=== PATIENT | female | born 1985 | race Caucasian/White ===

== ENCOUNTER 2019-03-17 20:07 | Emergency (ER) | payer SELFPAY ==
[2019-03-17 20:09] VITALS: BP 137/73; PULSE 97; RESP 14; TEMP 36.5; O2SAT 99; BMI 24.2
--- NOTE | 2019-03-17 20:33 | XRR_ITS ---
PROCEDURE INFORMATION: Exam: XR Left Tibia and Fibula Exam date and time: 03/17/2019 8:51 PM Age: 33 years old Clinical indication: Ankle; Left; Patient HX: Roller blading and fell. Lateral tib fib pain. ; Additional info: Injury TECHNIQUE: Imaging protocol: XR Left tibia and fibula. Views: 2 views. COMPARISON: No relevant prior studies available. FINDINGS: Bones/joints: The bone density is appropriate. No periosteal reaction. No osteomyelitis. No acute fracture or dislocation. No bony destructive changes. Soft tissues: No foreign body. No gas in the soft tissues. XR/XR tibia fibula LT 2V [id number] IMPRESSION: No acute bony abnormality.
[2019-03-17 20:35] VITALS: BP 113/77; PULSE 91; RESP 14; O2SAT 100
--- NOTE | 2019-03-17 20:37 | W.ED.EXTPRO ---
HPI - Extremity Problem General: Chief complaint: Extremity Injury, Lower Stated complaint: FALL 2 WKS AGO-L LEG PAIN Time Seen by Provider: 03/17/19 20:29 Source: patient Mode of arrival: ambulatory Limitations: no limitations History of Present Illness: HPI Narrative: Patient comes in today with complaints of injury to the left lower leg. Patient reports she was rollerskating and tripped on some rocks and caused the injury to her left lower leg. The injury occurred about 2 weeks ago. Patient comes in due to persistent bruising and soreness. Patient is weightbearing and appears well. Review of Systems General: Reports: 10 or more systems reviewed and unremarkable except in HPI and below Musc: Reports: extremity pain and extremity swelling PFSH ED PFSH: Statuses (acute, chronic, etc) shown below reflect problem list status as previously entered and may not be historically accurate Social History Smoking and tobacco status: current every day smoker Female Reproductive History: Date of last menstrual period: 03/05/19 Physical Exam Const: COMMON NORMALS: no apparent distress and oriented x3 GENERAL APPEARANCE: cooperative HENMT: COMMON NORMALS: normocephalic, external ears normal, EAC's normal, TM's normal bilaterally and external nose normal HEAD & SCALP: normal to inspection and normocephalic FACE & SINUS: normal facial exam NOSE: external nose normal GENERAL EAR: hearing not grossly impaired EXTERNAL EAR: Yes external ears normal EXTERNAL AUDITORY CANAL: EAC's normal TYMPANIC MEMBRANE: TM's normal bilaterally MOUTH: oral and palatal mucosa normal THROAT: posterior oropharynx normal Eye: COMMON NORMALS: PERRL and EOMs intact bilaterally PUPIL: Yes PERRL Neck/C-Spine: COMMON NORMALS: full ROM and no lymphadenopathy Lymph: LYMPHATIC: no lymphedema noted Chest: COMMONS NORMALS: inspection of chest normal and palpation of chest normal Resp: COMMON NORMALS: normal respiratory effort and clear to auscultation bilaterally AUSCULTATION: clear to auscultation bilaterally Cardio: COMMON NORMALS: regular rate and regular rhythm RATE: regular rate RHYTHM: regular rhythm GI: COMMON NORMALS: normal to inspection, nondistended, normoactive bowel sounds and non-tender : COMMON NORMALS: Yes no CVA tenderness BLADDER/KIDNEY EXAM: Yes no CVA tenderness Back/Pelvis: COMMON NORMALS: no CVA tenderness and thoracic and lumbar spine normal to inspection Extremity: GENERAL: Yes edema LEFT LOWER EXTREMITY: Yes lower leg (contusion, swelling mild, tenderness) Neuro: COMMON NORMALS: oriented x3, moves all extremities and no focal motor deficits Psych: COMMON NORMALS: mental status grossly normal and cooperative Skin: COMMON NORMALS: no rashes or lesions noted GENERAL SKIN EXAM: no rashes or lesions noted Course Vital Signs: Vital signs: Vital Signs Temperature 97.7 F 03/17/19 20:09 Pulse Rate 91 03/17/19 20:35 Respiratory Rate 14 03/17/19 20:35 Blood Pressure 113/77 03/17/19 20:35 Pulse Oximetry 100 03/17/19 20:35 MDM - Extremity (Nontraumatic) MDM Narrative: Medical decision making narrative: Patient comes in today for evaluation of injury to the left lower extremity that occurred 2 weeks ago. On exam we note some extensive bruising and tenderness to the left lower extremity. Differential diagnosis includes hematoma, contusion, fracture. X-ray noted no fracture or dislocation of the tib-fib. Reviewed exam with patient recommended treatment with warm moist packs and Tylenol and ibuprofen. Patient was recommended to continue activity as tolerated and follow-up with primary care as needed for further evaluation and treatment. Patient stated understanding. Discharge Plan Discharge Patient Disposition: Home, Self-Care Clinical Impression: Contusion of left lower leg Qualifiers: Encounter type: initial encounter Qualified Code(s): S80.12XA - Contusion of left lower leg, initial encounter Condition: Stable Prescriptions: No Action No Known Home Medications RF: 0 Discharge Orders: Discharge Order (Routine); Ordered 03/17/19 Ordered By: Alton Gaines Referrals: Sae Rooney APN [Family Provider] - Discharge Diet: Usual diet Discharge Activity: Increase activity as tolerated Patient Instructions: Contusion in Adults (ED) Activity Restrictions/Additional Instructions: Activity as tolerated Warm moist packs and soaks to the area Drink plenty of water Acetaminophen and ibuprofen for pain Follow-up with primary care as needed Return to ER for high fever increased redness and swelling to lower extremity Discharge Date/Time: 03/17/19 21:15 Coding Level of Care Code 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
== END 2019-03-17 21:15 | disposition home or self-care (01) ==
PROVIDERS: Emergency Provider Nurse Practitioner Family; Family Provider Nurse Practitioner Family
DX: S80.12XA Contusion of left lower leg, initial encounter (principal); W18.09XA Striking against other object with subsequent fall, initial encounter; Y93.51 Activity, roller skating (inline) and skateboarding; F17.210 Nicotine dependence, cigarettes, uncomplicated
CPT/HCPCS: 73590; 99281; 99282

== ENCOUNTER 2019-09-22 17:02 | Emergency (ER) | payer SELFPAY ==
[2019-09-22 17:12] VITALS: BP 122/75; PULSE 81; RESP 18; TEMP 36.8; O2SAT 98; BMI 26.6
[2019-09-22] MEDS: methylPREDNISolone (DEPO) 80 MG/ML INJ 1 mL IM (17:53)
[2019-09-22] MEDS: ketorolac 60 mg/2 mL INJ IM (17:53)
--- NOTE | 2019-09-22 17:53 | W.ED.FEMALGU ---
HPI - Female Genitourinary General: Chief complaint: Urogenital-Female Stated complaint: L SIDE BACK PAIN X 4 DAYS Time Seen by Provider: 09/22/19 17:22 History of Present Illness: HPI Narrative: Patient complains about pain left side does have a history of chronic low back pain. Patient did [place] the last 3 days did a lot of moving and stuff. She has been taking Azo-Standard thinking she might had a kidney infection but she is had no kidney infection symptoms. MD elicited complaint: other (Left lower back pain) Severity: mild Associated symptoms: Deny abdominal pain, headache(s) or nausea Date of Last Menstrual Period: 03/05/19 Review of Systems Const: Denies: fever(s), chills or body aches Eyes: Denies: change in vision or blurry vision ENMT: Denies: throat pain or nasal congestion Card: Denies: chest pain or dyspnea on exertion Resp: Denies: dyspnea, productive cough or non-productive cough GI: Denies: abdominal pain, nausea or vomiting Musc: Reports: back pain (Left flank area); Denies: extremity pain Skin/Breast: Denies: rash Neuro: Denies: headache(s) Psych: Denies: anxiety or depression Gabo/Lymph: Denies: easy bruising PFSH ED PFSH: Social History Smoking and tobacco status: current every day smoker Female Reproductive History: Date of last menstrual period: 03/05/19 Physical Exam Const: COMMON NORMALS: no acute distress, average body habitus and patient oriented x3 HENMT: COMMON NORMALS: normocephalic HEAD & SCALP: normal to inspection and normocephalic FACE & SINUS: normal facial exam Eye: COMMON NORMALS: conjunctivae normal GENERAL EYE: appearance normal, both eyes and all related structures CONJUNCTIVA: Yes conjunctivae normal Neck/C-Spine: COMMON NORMALS: no JVD Chest: COMMONS NORMALS: normal inspection of the chest Resp: COMMON NORMALS: normal respiratory effort and clear to auscultation bilaterally AUSCULTATION: clear to auscultation bilaterally Cardio: COMMON NORMALS: no JVD, regular rate and regular rhythm RATE: regular rate RHYTHM: regular rhythm GI: COMMON NORMALS: Normal to inspection, nondistended, normoactive bowel sounds present Back/Pelvis: LUMBAR SPINE/LOWER BACK: Yes straight leg raise positive left (Bilateral straight leg lift +20 degrees tenderness left flank area.) Straight leg raise positive details left: at 40 degrees Extremity: COMMON NORMALS: normal to inspection and full ROM Neuro: COMMON NORMALS: patient oriented x3 Course Vital Signs: Vital signs: Vital Signs Temperature 98.3 F 09/22/19 17:12 Pulse Rate 81 09/22/19 17:12 Respiratory Rate 18 09/22/19 17:12 Blood Pressure 122/75 09/22/19 17:12 Pulse Oximetry 98 09/22/19 17:12 Discharge Plan Discharge Prescriptions: No Action Azo Urinary Pain Relief 95 mg Tablet 95 mg PO TID PRN (Reason: uti) RF: 0 Coding Level of Care Code 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
[2019-09-22 18:00] VITALS: BP 100/59; PULSE 73; RESP 16; O2SAT 97
[2019-09-22 18:12] LABS: Urine Appearance Clear (CLEAR); Urine Color Orange (Yellow); pH Urine 5 (5-7)
[2019-09-22 18:14] LABS: Blood Urine Trace (Negative)
[2019-09-22 18:15] LABS: Add Urine Microscopic? YES
[2019-09-22 18:16] LABS: Add Urine Culture? No; Bacteria Urine TRACE; Mucus Urine 1+; RBC Urine 0-4 /hpf (0-2); Squamous Epithelial Cell Urine 0-4 (0-5)
[2019-09-22 19:04] VITALS: BP 122/74; PULSE 81; RESP 17; TEMP 36.8; O2SAT 95
== END 2019-09-22 19:04 | disposition home or self-care (01) ==
PROVIDERS: Emergency Provider Nurse Practitioner Family; PCP Nurse Practitioner Family
DX: M54.9 Dorsalgia, unspecified (principal); F17.210 Nicotine dependence, cigarettes, uncomplicated
CPT/HCPCS: 12345; 81001; 96372; 99282; 99283; J1040; J1885

== ENCOUNTER → 2020-06-27 10:05 | Outpatient (BNVA) | payer OTHER, SELFPAY | PROVIDERS: PCP Nurse Practitioner Family; Visit Provider Nurse Practitioner Family | DX: J43.9 Emphysema, unspecified (principal); R76.11 Nonspecific reaction to tuberculin skin test without active tuberculosis | CPT/HCPCS: 71046 ==

== ENCOUNTER 2020-07-21 19:15 | Emergency (ER) | payer SELFPAY ==
[2020-07-21 19:51] VITALS: BP 122/80; PULSE 66; RESP 16; TEMP 36.8; O2SAT 98; BMI 24.2
--- NOTE | 2020-07-21 20:02 | USR_ITS ---
PROCEDURE INFORMATION: Exam: US Left Breast Limited; Trauma Exam date and time: 07/21/2020 8:24 PM Age: 35 years old Clinical indication: Left; Patient HX: Scanned lt breast pain TECHNIQUE: Imaging protocol: Limited ultrasound of Left breast with image documentation, including axilla when performed. Exam focused on the search and evaluation for trauma. Exam is an emergent request and a non-BIRADS study. COMPARISON: No relevant prior studies available. FINDINGS: US breast: Unremarkable soft tissue planes. No focal soft tissue mass, or fluid collection. No soft tissue edema identified. US/US breast LT limited* [id number] IMPRESSION: No evidence of hematoma, mass or fluid collection.
--- NOTE | 2020-07-21 20:03 | W.ED.CHESTPA ---
HPI - Chest Pain General: Chief Complaint: Chest Pain Stated Complaint: left sided chest pain Time Seen by Provider: 07/21/20 19:58 History of Present Illness: HPI narrative: This patient presents to the emergency department 35-year-old female complaining of 3 days worth of left breast pain. Patient states the pain is getting worse hurts to even twist or move. Patient is holding her left breast with right hand patient states that that is making her feel any better. Patient denies any injury. Associated symptoms: Deny abdominal pain, dyspnea, fever(s), nausea, palpitations or vomiting Review of Systems General: Reports: 10 or more systems reviewed and unremarkable except in HPI and below Const: Denies: fever(s), chills, body aches or fatigue Eyes: Denies: change in vision or blurry vision ENMT: Denies: throat pain, hoarseness or mouth pain Card: Denies: chest pain, palpitations, irregular heart rhythm, edema, swelling of feet/ankles or lightheadedness Resp: Denies: dyspnea, productive cough, non-productive cough, wheezing or pain on inspiration GI: Denies: abdominal pain, nausea or vomiting : Denies: flank pain, difficulty voiding, dysuria, urinary frequency, urinary urgency or urinary hesitancy Musc: Denies: neck pain, back pain, extremity pain, extremity swelling, joint pain, joint swelling, joint redness, joint warmth or limited range of motion Skin/Breast: Reports: breast tenderness and breast pain; Denies: rash, pruritus, erythema or skin tenderness Neuro: Denies: headache(s), numbness in extremities or weakness in extremities Psych: Denies: anxiety or depression [facility] ED PFSH: Social History Smoking and tobacco status: current every day smoker cigarettes Packs smoked per day: 1 Years cigarettes smoked: 16 Second hand smoke exposure: Yes Alcohol intake: never Lives independently: Yes Household members: children Marital status: Life Partner service: No Current occupational status: unemployed History of recent travel: No Current gender identity: Female Special tyler needs: No Agree to transfusion: Yes Female Reproductive History: Date of last menstrual period: 07/19/20 Physical Exam Const: COMMON NORMALS: no acute distress, average body habitus, patient oriented x3, no limitations, healthy appearing, alert and well nourished HENMT: COMMON NORMALS: normocephalic, atraumatic, hearing grossly normal bilaterally, external ears normal, EAC's normal, TM's normal bilaterally, Normal external nose present, Normal nasal mucous membranes and turbinates present, moist oral mucous membranes, oropharynx normal, dentition normal and gingiva normal HEAD & SCALP: normocephalic and atraumatic NOSE: Normal external nose present and Normal nasal mucous membranes and turbinates present EXTERNAL EAR: Yes external ears normal EXTERNAL AUDITORY CANAL: EAC's normal TYMPANIC MEMBRANE: TM's normal bilaterally Neck/C-Spine: COMMON NORMALS: full ROM, no lymphadenopathy, supple, no meningeal signs, no JVD, Thyroid normal and No carotid bruits THYROID: Thyroid normal Chest: COMMONS NORMALS: normal inspection of the chest CHEST: Yes tenderness Breast/axilla inspection: Yes abnormal inspection of the breast BREAST/AXILLA PALPATION: Yes abnormal palpation of the breast and Yes breast lump Chest images (female): 1. Breast lump with tenderness Resp: COMMON NORMALS: normal respiratory effort, No retractions, No use of accessory muscles, clear to auscultation bilaterally and percussion normal AUSCULTATION: clear to auscultation bilaterally PERCUSSION: percussion normal Cardio: COMMON NORMALS: no JVD, regular rate, regular rhythm, S1 normal heart sound present, S2 normal heart sound present, No gallops present (Cardio), No clicks present (Cardio), No murmurs present (Cardio), No rub (Cardio) and Peripheral pulses 2+ throughout RATE: regular rate RHYTHM: regular rhythm HEART SOUNDS: S1 normal heart sound present and S2 normal heart sound present PERIPHERAL PULSES: Peripheral pulses 2+ throughout GI: COMMON NORMALS: Normal to inspection, nondistended, normoactive bowel sounds present, Soft to palpation, non-tender, No hepatosplenomegaly present, no masses and no bruits PALPATION: Yes Soft to palpation and Yes No hepatosplenomegaly present : COMMON NORMALS: Yes no CVA tenderness BLADDER/KIDNEY EXAM: Yes no CVA tenderness Back/Pelvis: COMMON NORMALS: no CVA tenderness, thoracic and lumbar spine normal to inspection, no thoracic nor lumbar tenderness, thoraco-lumbar ROM normal and straight leg raise negative bilaterally Extremity: COMMON NORMALS: normal to inspection, full ROM, capillary refill normal, no joint enlargement, no clubbing, cyanosis or edema, no calf tenderness and no pedal edema Neuro: COMMON NORMALS: patient oriented x3 SENSORIUM/ORIENTATION: Yes alert MENINGEAL SIGNS: Yes no meningeal signs Course Vital Signs: Vital signs: Vital Signs Temperature 98.3 F 07/21/20 19:51 Pulse Rate 66 07/21/20 19:51 Respiratory Rate 16 07/21/20 19:51 Blood Pressure 122/80 07/21/20 19:51 Pulse Oximetry 98 07/21/20 19:51 MDM - Chest Pain MDM Narrative: Medical decision making narrative: Negative evaluation in the emergency department any acute findings. However on physical exam does have a lump with tenderness concerning for possible underlying mastitis. Patient will be placed on Bactrim DS. And pain medication patient instructed to follow-up with PCP in 2 to 3 days. Use ice packs as needed. Medical Records: Attestation: I reviewed the patient's medical records. Lab Data: Attestation: I reviewed the patient's lab results. Labs: Lab Results 07/21/20 07/21/20 Range/Units 20:27 20:27 WBC 6.5 (4.0-10.0) 10^3/ uL RBC 4.09 L (4.1-5.3) 10^6/u L Hgb 12.3 (11.5-15.3) g/dL Hct 36.4 L (37.0-47.0) % MCV 89.0 (81-99) fL MCH 30.1 (28.0-34.0) pg MCHC 33.8 (30.0-36.0) g/dL RDW 13.4 (12.1-15.1) % Plt Count 252 (130-400) 10^3/c mm MPV 10.6 H (7.4-10.4) fL Neut % (Auto) 45.8 % Lymph % (Auto) 41.0 % [place] % (Auto) 7.6 % Eos % (Auto) 4.6 % Baso % (Auto) 0.8 % Neut # (Auto) 2.97 (1.8-7.7) 10^3/u L Lymph # (Auto) 2.7 (0.8-4.8) 10^3/u L [place] # (Auto) 0.5 (0.2-0.9) 10^3/u L Eos # (Auto) 0.3 (0.0-0.8) 10^3/u L Baso # (Auto) 0.1 (0.0-0.1) 10^3/u L Nucleated RBC % (a uto) 0 % Nucleated RBCs # 0.0 /100WBC Sodium 139 (136-145) mmol/L Potassium 3.9 (3.5-5.1) mmol/L Chloride 104 (98-107) mmol/L Carbon Dioxide 23 (22-29) mmol/L Anion Gap 15.9 (5-19) BUN 9 (6-20) mg/dL Creatinine 0.6 (0.5-0.9) mg/dL GFR Calculation 113.1 (90-130) mL/min Glucose 72 (65-115) mg/dL Calculated Osmolal ity 285 (285-295) mOsm/k g Calcium 8.6 (8.5-10.5) mg/dL Total Bilirubin 0.2 (0.15-1.2) mg/dL AST 40 H (0-32) U/L ALT 39 H (0-33) U/L Alkaline Phosphata se 45 (35-105) IU/L Total Protein 6.7 (6.6-8.7) g/dL Albumin 4.1 (3.5-5.2) g/dL Globulin 2.6 (1.3-4.6) g/dL Imaging Data^: US: Attestation: I personally reviewed and interpreted this imaging study as follows: Radiologist's impression: Negative for acute findings Discharge Plan Discharge Patient Disposition: Home Clinical Impression: Breast pain Condition: Stable Prescriptions: New diclofenac sodium 75 mg tablet,delayed release (DR/EC) 75 mg PO BID PRN (Reason: pain) Qty: 20 RF: 0 sulfamethoxazole-trimethoprim [Bactrim DS] 800-160 mg tablet 1 tab PO DAILY 14 Days RF: 0 No Action methadone 10 mg tablet 50 mg PO DAILY RF: 0 Discharge Orders: Discharge ED (Routine); Ordered 07/21/20 Ordered By: Escobar Jimenez Referrals: Quevedo,Nevin, MANAGER WIRELESS [Primary Care Provider] - Discharge Diet: Advance as tolerated Discharge Activity: Resume usual activity Patient Instructions: Opioid Safety Activity Restrictions/Additional Instructions: Take medications as instructed. Ice packs as needed. Monitor area closely. Follow-up with PCP in 2 to 3 days Coding Level of Care Code ED Chief Deputy Coroner for [facility] Fwd Exam Comprehensive
[2020-07-21 20:35] LABS: Basophils # 0.1 10^3/uL (0.0-0.1); Basophils % 0.8 %; Eosinophils # 0.3 10^3/uL (0.0-0.8); Eosinophils % 4.6 %; Hematocrit 36.4 % (37.0-47.0); Hemoglobin 12.3 g/dL (11.5-15.3); Lymphocytes # 2.7 10^3/uL (0.8-4.8); Mean Corpuscular HGB Conc 33.8 g/dL (30.0-36.0); Mean Corpuscular Hemoglobin 30.1 pg (28.0-34.0); Mean Platelet Volume 10.6 fL (7.4-10.4); Monocytes # 0.5 10^3/uL (0.2-0.9); Monocytes % 7.6 %; Neutrophils # 2.97 10^3/uL (1.8-7.7); Neutrophils % 45.8 %; Nucleated Red Blood Cells % 0 %; Platelet Count 252 10^3/cmm (130-400); Red Blood Count 4.09 10^6/uL (4.1-5.3); Red Cell Distribution Width 13.4 % (12.1-15.1); White Blood Count 6.5 10^3/uL (4.0-10.0)
[2020-07-21] MEDS: sodium chloride 0.9% 500 ML IV (21:03)
[2020-07-21] MEDS: ondansetron 2 mg/ML SDV 2 mL 4 MG IVP (21:03)
[2020-07-21] MEDS: ketorolac 30 mg/mL INJ 15 MG IVP (21:05)
[2020-07-21 21:06] LABS: Alanine Aminotransferase 39 U/L (0-33); Albumin Level 4.1 g/dL (3.5-5.2); Alkaline Phosphatase 45 IU/L (35-105); Anion Gap 15.9 (5-19); Blood Urea Nitrogen 9 mg/dL (6-20); Calcium 8.6 mg/dL (8.5-10.5); Carbon Dioxide 23 mmol/L (22-29); Chloride 104 mmol/L (98-107); Creatinine Clr Calc Pharmacy 128.4984; Globulin 2.6 g/dL (1.3-4.6); Glomerular Filtration Rate 113.1 mL/min (90-130); Glucose 72 mg/dL (65-115); Osmolality Calculated 285 mOsm/kg (285-295); Potassium 3.9 mmol/L (3.5-5.1); Sodium 139 mmol/L (136-145); Total Bilirubin 0.2 mg/dL (0.15-1.2); Total Protein 6.7 g/dL (6.6-8.7)
[2020-07-21 21:07] LABS: Aspartate Amino Transferase 40 U/L (0-32)
[2020-07-21 21:34] VITALS: BP 127/60; PULSE 86; RESP 16; TEMP 36.8; O2SAT 98
== END 2020-07-21 21:35 | disposition home or self-care (01) ==
PROVIDERS: Emergency Provider Emergency Medicine; PCP Nurse Practitioner Family
DX: N64.4 Mastodynia (principal); F17.210 Nicotine dependence, cigarettes, uncomplicated; Z79.891 Long term (current) use of opiate analgesic
CPT/HCPCS: 76642; 80053; 85025; 96361; 96374; 96375; 99283; J1885; J2405; J7040

== ENCOUNTER → 2020-11-19 15:29 | Outpatient (BNVA) | payer SELFPAY | PROVIDERS: PCP Nurse Practitioner Family; Visit Provider Nurse Practitioner Family | DX: L65.9 Nonscarring hair loss, unspecified (principal); Z13.29 Encounter for screening for other suspected endocrine disorder; M25.50 Pain in unspecified joint; M79.10 Myalgia, unspecified site; R63.5 Abnormal weight gain; Z82.69 Family history of other diseases of the musculoskeletal system and connective tissue; M65.312 Trigger thumb, left thumb | CPT/HCPCS: 80053; 82607; 83550; 84443; 85025; 85651; 86140; 86160; 86162; 86235; 86255; 86376 ==

== ENCOUNTER → 2020-12-19 09:49 | Outpatient (BNVA) | payer OTHER, SELFPAY | PROVIDERS: PCP Nurse Practitioner Family; Visit Provider Internal Medicine | DX: R76.8 Other specified abnormal immunological findings in serum (principal); M25.50 Pain in unspecified joint; D64.9 Anemia, unspecified; L65.9 Nonscarring hair loss, unspecified; Z11.59 Encounter for screening for other viral diseases; G47.00 Insomnia, unspecified; R74.01 Elevation of levels of liver transaminase levels; R76.11 Nonspecific reaction to tuberculin skin test without active tuberculosis; Z82.69 Family history of other diseases of the musculoskeletal system and connective tissue; F17.210 Nicotine dependence, cigarettes, uncomplicated | CPT/HCPCS: 99204 ==

== ENCOUNTER 2020-12-19 10:46 | Outpatient (CLI) | payer OTHER, SELFPAY ==
--- NOTE | 2020-12-19 10:55 | XR_ITS ---
WS: [id number] Left foot, 2 views, 12/19/2020 Clinical Data: M25.50 - Pain in unspecified joint Comparison: None. Findings: No fractures or dislocations are seen. No bone destruction or erosion is noted. The joint spaces and soft tissues are normal. No periarticular demineralization or calcifications are seen. XR/XR foot LT 2V [id number] Impression: Negative left foot.
--- NOTE | 2020-12-19 10:55 | XR_ITS ---
WS: [id number] Right hand, 2 views, 12/19/2020 Clinical Data: R74.01 - Elevation of levels of liver transaminase levels Comparison: None. Findings: No fractures or dislocations are seen. The soft tissues are unremarkable. The joint space s are normal An artifact overlies the distal phalanx of the right fourth finger. No periarticular demineralization or calcifications are seen. XR/XR hand RT 2V [id number] Impression: Negative right hand.
--- NOTE | 2020-12-19 10:55 | XR_ITS ---
WS: [id number] Left hand, 2 views, 12/19/2020 Clinical Data: R74.01 - Elevation of levels of liver transaminase levels Comparison: None. Findings: No fractures or dislocations are seen. The soft tissues are unremarkable. The joint spaces are normal A decorative fingernail overlies the distal phalanx of the left fourth finger. No periarticular demin eralization or calcifications are seen. XR/XR hand LT 2V [id number] Impression: Negative left hand.
--- NOTE | 2020-12-19 10:55 | XR_ITS ---
WS: [id number] Right foot, 2 views, 12/19/2020 Clinical Data: M25.50 - Pain in unspecified joint Comparison: None. Findings: No fractures or dislocations are seen. No bone destruction or erosion is noted. The joint spaces and soft tissues are normal. No periarticular demineralization or calcifications are seen. XR/XR foot RT 2V [id number] Impression: Negative right foot.
== END 2020-12-19 10:47 | disposition home or self-care (01) ==
LOC: RAD 10:53
PROVIDERS: PCP Nurse Practitioner Family; Visit Provider Internal Medicine
DX: G47.00 Insomnia, unspecified (principal); L65.9 Nonscarring hair loss, unspecified; M25.50 Pain in unspecified joint; M65.312 Trigger thumb, left thumb; M79.10 Myalgia, unspecified site; R53.83 Other fatigue; R74.01 Elevation of levels of liver transaminase levels; Z82.69 Family history of other diseases of the musculoskeletal system and connective tissue
CPT/HCPCS: 73120; 73620

== ENCOUNTER → 2020-12-22 09:23 | Outpatient (BNVA) | payer OTHER, SELFPAY | PROVIDERS: PCP Nurse Practitioner Family; Visit Provider Internal Medicine | DX: G47.00 Insomnia, unspecified (principal); L65.9 Nonscarring hair loss, unspecified; M25.50 Pain in unspecified joint; Z11.59 Encounter for screening for other viral diseases; Z11.1 Encounter for screening for respiratory tuberculosis; M65.312 Trigger thumb, left thumb; M79.10 Myalgia, unspecified site; R53.83 Other fatigue; R74.01 Elevation of levels of liver transaminase levels; Z82.69 Family history of other diseases of the musculoskeletal system and connective tissue | CPT/HCPCS: 80053; 80061; 81001; 82306; 82310; 82550; 82607; 82746; 82784; 83516; 83540; 83550; 83970; 84100; 85025; 85651; 86140; 86160; 86480; 86704; 86803; 87340 ==

== ENCOUNTER → 2021-01-02 08:34 | Outpatient (BNVA) | payer OTHER, SELFPAY | PROVIDERS: PCP Nurse Practitioner Family; Visit Provider Internal Medicine | DX: R76.8 Other specified abnormal immunological findings in serum (principal); L65.9 Nonscarring hair loss, unspecified; R74.01 Elevation of levels of liver transaminase levels; B18.2 Chronic viral hepatitis C; R53.83 Other fatigue; M25.50 Pain in unspecified joint; E87.6 Hypokalemia; R79.0 Abnormal level of blood mineral; E55.9 Vitamin D deficiency, unspecified; F17.210 Nicotine dependence, cigarettes, uncomplicated | CPT/HCPCS: 99214 ==

== ENCOUNTER → 2021-01-21 15:37 | Outpatient (BNVA) | payer OTHER, SELFPAY | PROVIDERS: PCP Nurse Practitioner Family; Referring Provider Nurse Practitioner Family; Visit Provider Specialist | DX: M65.312 Trigger thumb, left thumb (principal) | CPT/HCPCS: 73130 ==

== ENCOUNTER → 2021-02-23 11:25 | Outpatient (BNVA) | payer OTHER, SELFPAY | PROVIDERS: PCP Nurse Practitioner Family; Visit Provider Specialist | DX: Z01.812 Encounter for preprocedural laboratory examination (principal); Z20.822 Contact with and (suspected) exposure to COVID-19 | CPT/HCPCS: 87635 ==

== ENCOUNTER → 2021-11-04 10:47 | Outpatient (BNVA) | payer OTHER, SELFPAY | PROVIDERS: PCP Nurse Practitioner Family; Visit Provider Nurse Practitioner Family | DX: N93.9 Abnormal uterine and vaginal bleeding, unspecified (principal); Z86.19 Personal history of other infectious and parasitic diseases; Z12.4 Encounter for screening for malignant neoplasm of cervix; Z13.6 Encounter for screening for cardiovascular disorders; R79.89 Other specified abnormal findings of blood chemistry; B37.3 Candidiasis of vulva and vagina | CPT/HCPCS: 80053; 80061; 82306; 82607; 84146; 84439; 84443; 85025; 86705; 86706; 86709; 86803; 87340; 87522; 87624; 87902 ==

== ENCOUNTER 2021-12-08 08:41 | Outpatient (CLI) | payer OTHER, SELFPAY ==
--- NOTE | 2021-12-08 08:30 | US_ITS ---
WS: [id number] Complete ABDOMINAL ULTRASOUND HISTORY: Z86.19 - Personal history of other infectious and parasites. COMPARISON: Renal ultrasound 08/07/2005 Liver: 14.7 cm in length. Liver is normal size and echogenicity with no mass or intrahepatic dilatati on. Portal Vein: Normal hepatopetal flow with monophasic waveform. Gallbladder: Normally distended with no gallstones, wall thickening or pericholecystic fluid. Gallbladder wall thickness: 0.3 cm. Pancreas: Poorly visualized due to body habitus. CBD: 0.3 cm. Right kidney: 10.8 cm x 5.5 cm x 4.0 cm. No mass, cortical thickening or hydronephrosis. Left kidney: 10.7 cm x 4.5 cm x 4.0 cm. No mass, cortical thickening or hydronephrosis. Spleen: Normal size and echogenicity. Abdominal aorta and IVC are within normal limits. No ascites. US/US abdomen complete* [id number] IMPRESSION: 1. Normal gallbladder. 2. Poorly visualized pancreas due to body habitus. 3. No bile duct dilatation. 4. Normal liver and kidneys.
== END 2021-12-08 08:42 | disposition home or self-care (01) ==
LOC: RAD 08:42
PROVIDERS: PCP Nurse Practitioner Family; Visit Provider Nurse Practitioner Family
DX: Z86.19 Personal history of other infectious and parasitic diseases (principal)
CPT/HCPCS: 76700

== ENCOUNTER → 2022-03-04 10:05 | Outpatient (BNVA) | payer OTHER, SELFPAY | PROVIDERS: PCP Nurse Practitioner Family; Visit Provider Student in an Organized Health Care Education/Training Program | DX: Z11.4 Encounter for screening for human immunodeficiency virus [HIV] (principal); B19.20 Unspecified viral hepatitis C without hepatic coma | CPT/HCPCS: 36415; 86705; 86706; 86709; 86803; 87340; 87522; 87806 ==

== ENCOUNTER → 2022-05-05 09:09 | Outpatient (BNVA) | payer OTHER, SELFPAY | PROVIDERS: PCP Nurse Practitioner Family; Visit Provider Nurse Practitioner Family | DX: F41.9 Anxiety disorder, unspecified (principal); F32.A Depression, unspecified; E55.9 Vitamin D deficiency, unspecified | CPT/HCPCS: 80053; 82306; 82607; 83735; 84443; 85025 ==

== ENCOUNTER 2022-07-14 11:48 | Outpatient (CLI) | payer OTHER, SELFPAY ==
[2022-07-14 12:38] LABS: Alanine Aminotransferase 9 U/L (0-33); Albumin Level 3.7 g/dL (3.5-5.2); Alkaline Phosphatase 64 U/L (35-105); Blood Urea Nitrogen 6 mg/dL (6-20); Calcium 8.6 mg/dL (8.5-10.5); Carbon Dioxide 23 mmol/L (22-29); Chloride 109 mmol/L (98-107); Globulin 3.3 g/dL (1.3-4.6); Glomerular Filtration Rate 80.3 mL/min (90-130); Glucose 103 mg/dL (65-115); Osmolality Calculated 290 mOsm/kg (285-295); Sodium 141 mmol/L (136-145); Total Bilirubin 0.2 mg/dL (0.15-1.2)
[2022-07-14 12:45] LABS: Anion Gap 12.7 (5-19); Aspartate Amino Transferase 17 U/L (0-32); Potassium 3.7 mmol/L (3.5-5.1)
[2022-07-15 22:49] LABS: HEP C RNA Viral Load Quant <1.18 NOT DETECTED Log IU/mL (NOT DETECTED); HEP C RNA Viral Load Quant <15 NOT DETECTED IU/mL (NOT DETECTED)
== END 2022-07-14 11:49 | disposition home or self-care (01) ==
LOC: LAB 11:53
PROVIDERS: PCP Nurse Practitioner Family; Visit Provider Student in an Organized Health Care Education/Training Program
DX: B19.20 Unspecified viral hepatitis C without hepatic coma (principal); Z86.19 Personal history of other infectious and parasitic diseases
CPT/HCPCS: 36415; 80053; 87522

== ENCOUNTER → 2022-07-15 08:36 | Outpatient (BNVA) | payer OTHER, SELFPAY | PROVIDERS: PCP Nurse Practitioner Family; Visit Provider Obstetrics & Gynecology | DX: N93.9 Abnormal uterine and vaginal bleeding, unspecified (principal); N83.201 Unspecified ovarian cyst, right side | CPT/HCPCS: 76830 ==

== ENCOUNTER → 2023-03-16 17:09 | Outpatient (BNVA) | payer MEDICAID, SELFPAY | PROVIDERS: PCP Nurse Practitioner Family; Visit Provider Nurse Practitioner Family | DX: N39.0 Urinary tract infection, site not specified (principal) | CPT/HCPCS: 81003; 87077; 87086; 87184 ==

== ENCOUNTER → 2023-06-27 15:35 | Outpatient (BNVA) | payer MEDICAID, SELFPAY | PROVIDERS: PCP Nurse Practitioner Family; Visit Provider Nurse Practitioner Family | DX: F41.9 Anxiety disorder, unspecified (principal); F32.A Depression, unspecified; N39.0 Urinary tract infection, site not specified; R30.0 Dysuria; R53.83 Other fatigue; Z86.19 Personal history of other infectious and parasitic diseases; E53.8 Deficiency of other specified B group vitamins | CPT/HCPCS: 80053; 80061; 81000; 81003; 83036; 84443; 87077; 87086; 87184 ==

== ENCOUNTER 2024-11-04 22:41 | Emergency (ER) | payer MEDICAID, SELFPAY ==
[2024-11-04 22:42] VITALS: BP 167/91; PULSE 108; RESP 18; TEMP 36.4; O2SAT 100; BMI 25.8
--- OUTSIDE RECORDS SUMMARY | 2024-11-04 22:49 | XMS_ITS | Encounter Summary ---
Author Organization [facility] Address [address] [place] [address] Care Team Providers Care Line Manager Name Role Phone Unavailable Primary Care Provider Unavailabl e Encounter Details Date Type Department Care Team (Late st Contact Info) Description 10/30/2024 External Device Data [facility] ABSTRACTION Provider, Abstract NO ADDRESS ON FILE Social History Tobacco Use Types Packs/Day Years Used Date Smoking Tobacco: Former Cigarettes Q uit: 10/15/2014 Smokeless Tobacco: Never Alcohol Use Standard Drinks/Week Comments No 0 (1 standard drink = 0.6 oz pur e alcohol) Feeling Safe Answer Date Recorded Are you in a relationship wi th someone who hurts you emotionally and/or physically? 

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
--- NOTE | 2024-11-04 22:55 | CTR_ITS ---
PROCEDURE INFORMATION: Exam: CT Head Without Contrast Exam date and time: 11/04/2024 11:09 PM Age: 39 years old Clinical indication: Altered mental status/memory loss; Confusion or disorientation; Patient C/O confusion and memory loss over last four days. TECHNIQUE: Imaging protocol: Computed tomography of the head without contrast. Radiation optimization: All CT scans at this facility use at least one of these dose optimization techniques: automated exposure control; mA and/or kV adjustment per patient size (includes targeted exams where dose is matched to clinical indication); or iterative reconstruction. COMPARISON: No relevant prior studies available. RADIATION DOSE METRICS: Total DLP (mGy-cm): 993.2 FINDINGS: Brain: Normal. No hemorrhage. Unremarkable white matter. No mass effect. Cerebral ventricles: No ventriculomegaly. Paranasal sinuses: Right maxillary and ethmoid sinus opacification, could represent infection. Mastoid air cells: Visualized mastoid air cells are well aerated. Bones: Unremarkable. No acute fracture. Soft tissues: Unremarkable. CT/CT head wo con* [id number] IMPRESSION: Right maxillary and ethmoid sinus opacification, could represent infection. No definite acute intracranial abnormality.
--- NOTE | 2024-11-04 23:00 | W.ED.AMS ---
HPI - Altered Mental Status General: Chief Complaint: Altered Mental Status Stated Complaint: Slurred Speaking\Confusion Time Seen by Provider: 11/04/24 22:48 History of Present Illness: 39-year-old female with Hx of hepatitis C with cirrhosis presents with 3?4 days of confusion, difficulty speaking, and short-term memory loss. Reports feeling very cold frequently and lethargic. Denies fever and abdominal pain. Notes midline spinal/back pain recently. No report of right-sided weakness or falls. Caregiver states patient has been losing items over the past three days. 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 Speech difficulty described as slurring and trouble concentrating. No other systemic complaints elicited. Related Data Home Medications ?Medication ?Instructions ?Recorded ?Confirmed methadone 10 mg tablet 85 mg PO DAILY 06/27/20 10/24/24 Previous Rx's ?Medication ?Instructions ?Recorded sofosbuvir 400 mg-velpatasvir 100 1 tab PO DAILY 12 weeks #90 tabs 05/05/22 mg tablet (Epclusa) loratadine 10 mg tablet (Claritin) 10 mg PO DAILY 90 days #90 tabs 07/14/22 fluconazole 150 mg tablet 150 mg PO Q3D 2 doses #2 tabs 03/16/23 ondansetron HCl 4 mg tablet 4 mg PO Q6H PRN nausea and 03/16/23 vomiting #60 tabs escitalopram oxalate 10 mg tablet 10 mg PO DAILY #30 tabs 06/27/23 (Lexapro) fluconazole 150 mg tablet 150 mg PO Q3D 2 doses #2 tabs 06/27/23 nitrofurantoin 100 mg PO Q12H 7 days #14 caps 07/01/23 monohydrate/macrocrystals 100 mg capsule (Macrobid) nitrofurantoin macrocrystal 100 mg 100 mg PO BID 5 days #10 caps 11/05/24 capsule Allergies Allergy/AdvReac Type Severity Reaction Status Date / Time No Known Allergies Allergy Verified 11/04/24 22:44 [facility] PFS: Medical History (Updated 11/05/24 @ 01:12 by Nicola Bach MD) Vitamin D deficiency B12 deficiency Anxiety and depression Hep C w/o coma, chronic Family History Other Diabetes Fibromyalgia Lupus Rheumatoid arthritis Social History Smoking and tobacco/nicotine status: current every day tobacco/nicotine user cigarettes Packs smoked per day: 0.5 Years cigarettes smoked: 16 Quit status (tobacco/nicotine): has tried quititng Second hand smoke exposure: Yes Alcohol intake: never Substance/Drug Use: former Date of last use: clean for years Female Reproductive History: Date of last menstrual period: 09/28/24 Physical Exam Const: COMMON NORMALS: patient oriented x3 and alert HENMT: COMMON NORMALS: normocephalic and atraumatic HEAD & SCALP: normocephalic and atraumatic Eye: COMMON NORMALS: Equal, round and reactive pupils present, EOMs intact bilaterally and no scleral icterus PUPIL: Yes Equal, round and reactive pupils present Resp: COMMON NORMALS: normal respiratory effort and No retractions Cardio: COMMON NORMALS: regular rate, regular rhythm and No murmurs present (Cardio) RATE: regular rate RHYTHM: regular rhythm GI: COMMON NORMALS: Normal to inspection, nondistended, normoactive bowel sounds present, Soft to palpation and non-tender PALPATION: Yes Soft to palpation Neuro: COMMON NORMALS: patient oriented x3 SENSORIUM/ORIENTATION: Yes alert Psych: OTHER: Tearful, anxious Skin: COMMON NORMALS: no rashes or lesions noted GENERAL SKIN EXAM: no rashes or lesions noted Course Vital Signs: Vital signs: Vital Signs Temperature 97.6 F 11/04/24 22:42 Pulse Rate 67 11/05/24 01:17 Respiratory Rate 12 11/05/24 01:17 Blood Pressure 122/72 11/05/24 01:17 Pulse Oximetry 64 L 11/05/24 01:17 Oxygen Delivery Me thod Room Air 11/04/24 23:25 MDM - Altered Mental Status Medical Decision Making 39-year-old F with hep C/cirrhosis presents with 3?4 days of confusion, word-finding/slurred speech, lethargy, cold intolerance, and recent midline back pain. Denies fever and abdominal pain. Safety Instructor notes memory loss and misplacing items. Vital signs notable for tachycardia. PE: tearful but conversant with clear speech during exam, no reported focal right-sided weakness. Stroke considered low likelihood per clinician given absence of associated focal deficits (no right arm/leg weakness). Metabolic/toxic etiologies discussed by provider as potential causes of confusion and slurred speech, including liver or renal dysfunction. Head imaging planned to evaluate brain pathology. Labs to assess hepatic function, renal function, and other contributors to confusion planned. Further evaluation pending results. In summary, patient is a generally well-appearing 39-year-old female seen for confusion. Her speech is clear. CT head shows nothing acute. Urinalysis shows possible infection for which she was given ceftriaxone here and a prescription for nitrofurantoin. Remainder of workup is noncontributory. She will be discharged in stable and improved condition with follow-up to primary care. Lab Data 11/04/24 23:02 11/04/24 23:[address] 11/04/24 22:55 IMPRESSION: Right maxillary and ethmoid sinus opacification, could represent infection. No definite acute intracranial abnormality. Laboratory Results WBC 5.93 10^3/uL (3.29-11.43) 11/04/24 23: RBC 2.98 10^6/uL (3.85-5.65) L 11/04/24 23: Hgb 9.70 g/dL (11.27-16.99) L 11/04/24 23:02 Hct 29.4 % (36-47) L 11/04/24 23: MCV 98.7 fl (85-98) H 11/04/24 23:02 MCH 32.6 pg (27-33) 11/04/24 23: MCHC 33.0 g/dL (30-55) 11/04/24 23: RDW 14.6 % (12.1-15.1) 11/04/24 23: Plt Count 278 10^3/cmm (157-399) 11/04/24 23:02 MPV 9.4 fL (7.4-10.4) 11/04/24 23: Neut % (Auto) 45.8 % 11/04/24 23: Lymph % (Auto) 45.0 % 11/04/24 23:02 Logan % (Auto) 4.0 % 11/04/24 23: Eos % (Auto) 4.4 % 11/04/24 23: Baso % (Auto) 0.5 % 11/04/24 23: Neut # (Auto) 2.71 10^3/uL (1.8-7.7) 11/04/24 23:02 Lymph # (Auto) 2.7 10^3/uL (0.8-4.8) 11/04/24 23:02 Logan # (Auto) 0.2 10^3/uL (0.2-0.9) 11/04/24 23:02 Eos # (Auto) 0.3 10^3/uL (0.0-0.8) 11/04/24 23:02 Baso # (Auto) 0.0 10^3/uL (0.0-0.1) 11/04/24 23:02 Nucleated RBC % (auto) 0 % 11/04/24 23:02 Nucleated RBCs # 0.0 /100WBC 11/04/24 23:02 PT 13.30 SECONDS (12.1-14.9) 11/04/24 23:02 INR 0.95 (0.8-1.2) 11/04/24 23:02 APTT 30.2 SECONDS (23.9-36.7) 11/04/24 23:02 Sodium 145 mmol/L (136-145) 11/04/24 23:02 Potassium 3.7 mmol/L (3.5-5.1) 11/04/24 23:02 Chloride 108 mmol/L (98-107) H 11/04/24 23:02 Carbon Dioxide 26 mmol/L (22-29) 11/04/24 23:02 Anion Gap 14.7 (5-19) 11/04/24 23:02 BUN 16 mg/dL (6-20) 11/04/24 23:02 Creatinine 1.0 mg/dL (0.5-0.9) H 11/04/24 23:02 GFR Calculation 61.4 mL/min (90-130) L 11/04/24 23:02 Glucose 127 mg/dL (65-115) H 11/04/24 23:02 POC Glucose 126 mg/dL (70-110) H 11/04/24 23:04 Calculated Osmolality 303 mOsm/kg (285-295) H 11/04/24 23:02 Calcium 8.8 mg/dL (8.5-10.5) 11/04/24 23:02 Total Bilirubin 0.2 mg/dL (0.15-1.2) 11/04/24 23:02 AST 18 U/L (0-32) 11/04/24 23:02 ALT 7 U/L (0-33) 11/04/24 23:02 Alkaline Phosphatase 65 U/L (35-105) 11/04/24 23:02 Ammonia 16 umol/L (11-51) 11/04/24 23:02 Total Protein 7.6 g/dL (6.6-8.7) 11/04/24 23: Albumin 4.0 g/dL (3.5-5.2) 11/04/24 23: Globulin 3.6 g/dL (1.3-4.6) 11/04/24 23: TSH 4.92 uIU/mL (0.27-4.20) H 11/04/24 23:02 Urine Color Yellow (Yellow) 11/04/24 23:30 Urine Appearance Clear (CLEAR) 11/04/24 23: Urine pH 6.0 (5-7) 11/04/24 23: Ur Specific Odin 1.020 (1.005-1.030) 11/04/24 23: Urine Protein Negative (Negative) 11/04/24 23: Urine Glucose (UA) Negative (Normal) 11/04/24 23: Urine Ketones Negative (Negative) 11/04/24 23: Urine Blood 1+ (Negative) A 11/04/24 23: Urine Nitrate Positive (Negative) A 11/04/24 23: Urine Bilirubin Negative (Negative) 11/04/24: Urine Urobilinogen 1.0 mg/dL (Negative) 11/04/24 23:30 Ur Leukocyte Esterase Trace (Negative) A 11/04/24 23:30 Urine RBC 3-5 /hpf (0-2) 11/04/24 23: Urine WBC 21-50 /hpf (0-5) H 11/04/24 23:30 Ur Squamous Epith Cells 0-5 /hpf (0-5) 11/04/24 23:30 Amorphous Sediment Not Reportable 11/04/24 23:30 Urine Bacteria 4+ /hpf (NONE) H 11/04/24 23: Hyaline Casts 0.40 /lpf 11/04/24 23:30 Ethyl Alcohol < 10 mg/dL (0-10) 11/04/24 23:02 All radiology interpretation(s) finalized by discharge EKG Data EKG 1: Interpretation: EKG at 2259 interpreted by me: Sinus rhythm, rate of 90, no ST segment elevation or depression, no T wave inversions, intervals within normal limits. QTc = 452 Discharge Plan Discharge Patient Disposition: Home Clinical Impression: UTI (urinary tract infection), Acute confusion Condition: Stable Prescriptions: New nitrofurantoin macrocrystal 100 mg capsule 100 mg PO BID 5 Days Qty: 10 0RF Rx Instructions: must administer with a meal/food No Action methadone 10 mg tablet 85 mg PO DAILY sofosbuvir-velpatasvir [Epclusa] 400-100 mg tablet 1 tab PO DAILY 84 Days Qty: 90 0RF loratadine [Claritin] 10 mg tablet 10 mg PO DAILY 90 Days Qty: 90 1RF ondansetron HCl 4 mg tablet 4 mg PO Q6H PRN (Reason: nausea and vomiting) Qty: 60 0RF fluconazole 150 mg tablet 150 mg PO Q3D Qty: 2 0RF Rx Instructions: may repeat second dose 72 hrs after first dose if symptoms persist escitalopram oxalate [Lexapro] 10 mg tablet 10 mg PO DAILY Qty: 30 2RF fluconazole 150 mg tablet 150 mg PO Q3D Qty: 2 0RF Rx Instructions: may repeat second dose 72 hrs after first dose if symptoms persist nitrofurantoin monohyd/m-cryst [Macrobid] 100 mg capsule 100 mg PO Q12H 7 Days Qty: 14 0RF Rx Instructions: must administer with a meal/food Discharge Orders: Discharge ED (Routine); Ordered 11/05/24 Ordered By: Nicola Bach Referrals: Jojo Choi FNP [Primary Care Provider, Family Practice] Discharge Diet: Usual diet Discharge Activity: Resume usual activity Patient Instructions: Urinary Tract Infection in Women (ED), Opioid Safety, Pain Management, Patient Portal & Valdo Instructions Print Language: Malay Coding Level of Care Code ED Automation And Control Engineer for Anderson Sorto
[2024-11-04 23:09] LABS: Hematocrit 29.4 % (36-47); Hemoglobin 9.70 g/dL (11.27-16.99); Mean Corpuscular HGB Conc 33.0 g/dL (30-55); Mean Corpuscular Hemoglobin 32.6 pg (27-33); Mean Corpuscular Volume 98.7 fl (85-98); Nucleated Red Blood Cells % 0 %; Platelet Count 278 10^3/cmm (157-399); Red Blood Count 2.98 10^6/uL (3.85-5.65); White Blood Count 5.93 10^3/uL (3.29-11.43)
[2024-11-04 23:20] LABS: INR 0.95 (0.8-1.2); Prothrombin Time 13.30 SECONDS (12.1-14.9)
[2024-11-04 23:21] LABS: Partial Thromboplastin Time 30.2 SECONDS (23.9-36.7)
[2024-11-04 23:25] VITALS: BP 103/72; PULSE 63; RESP 12; O2SAT 100
[2024-11-04 23:30] LABS: Ammonia 16 umol/L (11-51)
[2024-11-04 23:39] LABS: Alanine Aminotransferase 7 U/L (0-33); Albumin Level 4.0 g/dL (3.5-5.2); Alkaline Phosphatase 65 U/L (35-105); Aspartate Amino Transferase 18 U/L (0-32); Blood Urea Nitrogen 16 mg/dL (6-20); Calcium 8.8 mg/dL (8.5-10.5); Carbon Dioxide 26 mmol/L (22-29); Chloride 108 mmol/L (98-107); Globulin 3.6 g/dL (1.3-4.6); Glucose 127 mg/dL (65-115); Osmolality Calculated 303 mOsm/kg (285-295); Sodium 145 mmol/L (136-145); Thyroid Stimulating Hormone 4.92 uIU/mL (0.27-4.20); Total Protein 7.6 g/dL (6.6-8.7)
[2024-11-04 23:41] LABS: Glucose Urine UA Negative (Normal); Nitrate Urine Positive (Negative); Specific Gravity, Urine 1.020 (1.005-1.030)
[2024-11-04 23:47] LABS: Add Urine Microscopic? YES
[2024-11-04 23:48] LABS: Alcohol Level < 10 mg/dL (0-10); Anion Gap 14.7 (5-19); Creatinine Clr Calc Pharmacy 76.2875; Potassium 3.7 mmol/L (3.5-5.1)
[2024-11-05] MEDS: cefTRIAXone 1,000 mg SDV 1000 MG IVP (01:09)
[2024-11-05 01:17] VITALS: BP 122/72; PULSE 67; RESP 12; O2SAT 64
== END 2024-11-05 01:25 | disposition home or self-care (01) ==
PROVIDERS: Emergency Provider Student in an Organized Health Care Education/Training Program; PCP Nurse Practitioner Family
DX: N39.0 Urinary tract infection, site not specified (principal); R41.0 Disorientation, unspecified; B19.20 Unspecified viral hepatitis C without hepatic coma; K74.60 Unspecified cirrhosis of liver
CPT/HCPCS: 36415; 36416; 70450; 80053; 80307; 81001; 82140; 82962; 84443; 85025; 85610; 85730; 87086; 96374; 99285; J0696; J7030

== ENCOUNTER 2024-11-08 16:48 | Emergency (ER) | payer MEDICAID, SELFPAY ==
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
--- OUTSIDE RECORDS SUMMARY | 2024-11-08 16:57 | XMS_ITS | Encounter Summary ---
Author Organization [email or web address] Address 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
--- OUTSIDE RECORDS SUMMARY | 2024-11-08 16:57 | XMS_ITS | Encounter Summary ---
Author Organization [employer] Address 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
--- OUTSIDE RECORDS SUMMARY | 2024-11-08 16:57 | XMS_ITS | Encounter Summary ---
Author Organization [employer] Address 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
[2024-11-08 16:59] VITALS: BP 121/68; PULSE 138; RESP 22; TEMP 36.6; O2SAT 99
--- NOTE | 2024-11-08 17:45 | ECG_ITS ---
[facility] Date: 2024-11-08 Pat Name: Nelsy Huang Department: Room: Gender: Female Stna: : 1985 Requested By: Meredith Kiser Order Number: [id number] Jason MD: EB ABRAMS Measurements Intervals Brohman Rate: 99 P: 40 ID: 147 QRS: 25 QRSD: 110 T: 54 QT: 390 QTc: 501 Interpretive Statements SINUS RHYTHM POSSIBLE LEFT ATRIAL ENLARGEMENT [-0.1mV P-WAVE IN V1/V2] INCOMPLETE RIGHT BUNDLE BRANCH BLOCK [90+ ms QRS DURATION, TERMINAL R IN V1/V2, 40+ ms S IN I/aVL/V4/V5/V6] No previous ECG available for comparison Electronically Signed On 11-10-2024 21:36:04 CDT by EB ABRAMS [email or web address]
--- NOTE | 2024-11-08 17:45 | W.ED.AMS ---
HPI - Altered Mental Status General: Chief Complaint: Altered Mental Status Stated Complaint: MHE Blindness 13 seconds Confused Time Seen by Provider: 11/08/24 17:30 History of Present Illness: Patient is a 39-year-old female with chronic pain contract on methadone, that initially presented on the 11/04 for UTI here to this emergency room. She was treated with nitrofurantoin, and changed to Bactrim 11/07. Nitrofurantoin was resistant, and Bactrim was sensitive. This was Klebsiella UTI. Patient states since she switched to the Bactrim, she is having confusion. Her states that she just falls asleep and falls backwards on close in the kitchen. She has not had any injury. She does complain of confusion. Her heart rate is 138, however denies any palpitations. Denies any other changes. She still has discomforts of urination as per patient. Associated symptoms: Reports depression; Deny homicidal ideation or suicidal ideation Related Data Home Medications ?Medication ?Instructions ?Recorded ?Confirmed methadone 10 mg tablet 85 mg PO DAILY 06/27/20 11/07/24 Previous Rx's ?Medication ?Instructions ?Recorded ondansetron HCl 4 mg tablet 4 mg PO Q6H PRN nausea and 11/07/24 vomiting #20 tabs sulfamethoxazole 800 1 tab PO BID 5 days #10 tabs 11/07/24 mg-trimethoprim 160 mg tablet (Bactrim DS) venlafaxine 75 mg capsule,extended 75 mg PO DAILY #30 caps 11/07/24 release 24 hr amoxicillin 875 mg-potassium 1 tab PO Q12H #20 tabs 11/08/24 clavulanate 125 mg tablet Allergies Allergy/AdvReac Type Severity Reaction Status Date / Time No Known Allergies Allergy Verified 11/07/24 10:39 Review of Systems Const: Reports: fatigue and night sweats; Denies: fever(s), chills or body aches Eyes: Denies: blurry vision or eye discomfort ENMT: Denies: throat pain, ear or mastoid pain, nasal discharge, nasal congestion or sinus pain Card: Denies: chest pain, palpitations or syncope Resp: Denies: dyspnea, productive cough, non-productive cough or wheezing GI: Reports: nausea; Denies: abdominal pain, vomiting or diarrhea : Reports: flank pain, dysuria, urinary frequency and urinary urgency; Denies: hematuria Skin/Breast: Denies: rash, pruritus or sores Psych: Reports: anxiety, depression and mood swings; Denies: suicidal ideation or homicidal ideation [facility] ED PFSH: Medical History (Updated 11/08/24 @ 19:41 by JIHAN Canchola) Vitamin D deficiency B12 deficiency Anxiety and depression Hep C w/o coma, chronic Surgical History History of dilation and curettage x 2 History of delivery x 3 History of tubal ligation Family History Other Diabetes Fibromyalgia Lupus Rheumatoid arthritis Social History Smoking and tobacco/nicotine status: current every day tobacco/nicotine user cigarettes Packs smoked per day: 0.5 Years cigarettes smoked: 16 Quit status (tobacco/nicotine): has tried quititng Second hand smoke exposure: Yes Alcohol intake: never Substance/Drug Use: former Date of last use: clean for years Physical Exam Const: COMMON NORMALS: patient oriented x3 and alert HENMT: COMMON NORMALS: normocephalic and atraumatic HEAD & SCALP: normocephalic and atraumatic Eye: COMMON NORMALS: Equal, round and reactive pupils present, EOMs intact bilaterally and no scleral icterus PUPIL: Yes Equal, round and reactive pupils present Neck/C-Spine: COMMON NORMALS: full ROM, no lymphadenopathy and supple Chest: COMMONS NORMALS: normal inspection of the chest and normal palpation of entire chest wall Resp: COMMON NORMALS: normal respiratory effort and No retractions Cardio: COMMON NORMALS: regular rate, regular rhythm and No murmurs present (Cardio) RATE: regular rate RHYTHM: regular rhythm GI: COMMON NORMALS: Normal to inspection, nondistended, normoactive bowel sounds present, Soft to palpation and non-tender PALPATION: Yes Soft to palpation Neuro: COMMON NORMALS: patient oriented x3, CN's II-XII intact bilaterally, moves all extremities, no focal motor deficits and no sensory deficits noted SENSORIUM/ORIENTATION: Yes alert Psych: COMMON NORMALS: mental status grossly normal, Normal thought process present and cooperative THOUGHT PROCESS: Normal thought process present Skin: COMMON NORMALS: no rashes or lesions noted GENERAL SKIN EXAM: no rashes or lesions noted Course Vital Signs: Vital signs: Vital Signs Temperature 97.9 F 11/08/24 16:59 Pulse Rate 90 11/08/24 20:54 Respiratory Rate 13 11/08/24 19:30 Blood Pressure 129/77 11/08/24 20:54 Pulse Oximetry 96 11/08/24 20:54 Oxygen Delivery Me thod Room Air 11/08/24 18:30 MDM - Altered Mental Status Medical Decision Making Patient is 39-year-old female that comes to the ED with changing in symptoms. Her baseline creatinine is 0.8, current 1 is 1.3. She does have PRIYA most likely related to ATN, hypovolemia, and antibiotic choices. Bactrim can do this, not typically in a 39-year-old. Patient was given IV fluids x 2 L, and recommended for follow-up on her elevation of creatinine/PRIYA. She does qualify for PRIYA at her level with that 1-1/2 times greater than her baseline. She is improved at time of discharge. Her antibiotics were changed to an antibiotic that would not affect renal functioning and mental confusion associated. All of her and her 's questions were answered to their satisfaction. Medical Records I reviewed the patient's medical records. Lab Data I reviewed the patient's lab results. 11/08/24 17:50 11/08/24 17:50 Laboratory Results WBC 7.29 10^3/uL (3.29-11.43) 11/08/24 17:50 RBC 3.50 10^6/uL (3.85-5.65) L 11/08/24 17:50 Hgb 11.40 g/dL (11.27-16.99) 11/08/24 17:50 Hct 34.3 % (36-47) L 11/08/24 17:50 MCV 98.0 fl (85-98) 11/08/24 17:50 MCH 32.6 pg (27-33) 11/08/24 17:50 MCHC 33.2 g/dL (30-55) 11/08/24 17:50 RDW 14.3 % (12.1-15.1) 11/08/24 17:50 Plt Count 397 10^3/cmm (157-399) 11/08/24 17:50 MPV 9.4 fL (7.4-10.4) 11/08/24 17:50 Neut % (Auto) 68.1 % 11/08/24 17:50 Lymph % (Auto) 27.0 % 11/08/24 17:50 [place] % (Auto) 2.7 % 11/08/24 17:50 Eos % (Auto) 1.1 % 11/08/24 17:50 Baso % (Auto) 0.4 % 11/08/24 17:50 Neut # (Auto) 4.96 10^3/uL (1.8-7.7) 11/08/24 17:50 Lymph # (Auto) 2.0 10^3/uL (0.8-4.8) 11/08/24 17:50 [place] # (Auto) 0.2 10^3/uL (0.2-0.9) 11/08/24 17:50 Eos # (Auto) 0.1 10^3/uL (0.0-0.8) 11/08/24 17:50 Baso # (Auto) 0.0 10^3/uL (0.0-0.1) 11/08/24 17:50 Nucleated RBC % (auto) 0 % 11/08/24 17:50 Nucleated RBCs # 0.0 /100WBC 11/08/24 17:50 Sodium 136 mmol/L (136-145) 11/08/24 17:50 Potassium 3.7 mmol/L (3.5-5.1) 11/08/24 17:50 Chloride 100 mmol/L (98-107) 11/08/24 17:50 Carbon Dioxide 23 mmol/L (22-29) 11/08/24 17:50 Anion Gap 16.7 (5-19) 11/08/24 17:50 BUN 22 mg/dL (6-20) H 11/08/24 17:50 Creatinine 1.3 mg/dL (0.5-0.9) H 11/08/24 17:50 GFR Calculation 45.4 mL/min (90-130) L 11/08/24 17:50 Glucose 126 mg/dL (65-115) H 11/08/24 17:50 Calculated Osmolality 287 mOsm/kg (285-295) 11/08/24 17:50 Lactic Acid 2.1 mmol/L (0.5-2.2) 11/08/24 17:50 Calcium 9.1 mg/dL (8.5-10.5) 11/08/24 17:50 Total Bilirubin 0.3 mg/dL (0.15-1.2) 11/08/24 17:50 AST 13 U/L (0-32) 11/08/24 17:50 ALT 7 U/L (0-33) 11/08/24 17:50 Alkaline Phosphatase 70 U/L (35-105) 11/08/24 17:50 Ammonia 22 umol/L (11-51) 11/08/24 17:43 C-Reactive Protein 3.0 mg/L (0.0-4.9) 11/08/24 17:50 Total Protein 8.4 g/dL (6.6-8.7) 11/08/24 17:50 Albumin 4.4 g/dL (3.5-5.2) 11/08/24 17:50 Globulin 4.0 g/dL (1.3-4.6) 11/08/24 17:50 HCG, Qual Negative (Negative) 11/08/24 17:50 Urine Color Yellow (Yellow) 11/08/24 18:55 Urine Appearance Clear (CLEAR) 11/08/24 18:55 Urine pH 5.5 (5-7) 11/08/24 18:55 Ur Specific [place] 1.023 (1.005-1.030) 11/08/24 18:55 Urine Protein Negative (Negative) 11/08/24 18:55 Urine Glucose (UA) Negative (Normal) 11/08/24 18:55 Urine Ketones Trace (Negative) 11/08/24 18:55 Urine Blood Negative (Negative) 11/08/24 18:55 Urine Nitrate Negative (Negative) 11/08/24 18:55 Urine Bilirubin Negative (Negative) 11/08/24 18:55 Urine Urobilinogen 1.0 mg/dL (Negative) 11/08/24 18:55 Ur Leukocyte Esterase Negative (Negative) 11/08/24 18:55 Urine RBC 0-2 /hpf (0-2) 11/08/24 18:55 Urine WBC 0-5 /hpf (0-5) 11/08/24 18:55 Ur Squamous Epith Cells 0-5 /hpf (0-5) 11/08/24 18:55 Amorphous Sediment Not Reportable 11/08/24 18:55 Urine Bacteria None seen /hpf (NONE) 11/08/24 18:55 Hyaline Casts 0.40 /lpf 11/08/24 18:55 Urine Opiates Screen Negative ng/mL (Negative) 11/08/24 18:55 Ur Barbiturates Screen Negative ng/mL (Negative) 11/08/24 18:55 Ur Phencyclidine Scrn Negative ng/mL (Negative) 11/08/24 18:55 Ur Amphetamines Screen Negative ng/mL (Negative) 11/08/24 18:55 U Benzodiazepines Scrn Positive ng/mL (Negative) H 11/08/24 18:55 Urine Cocaine Screen Negative ng/mL (Negative) 11/08/24 18:55 U Marijuana (THC) Screen Positive ng/mL (Negative) H 11/08/24 18:55 Ethyl Alcohol < 10 mg/dL (0-10) 11/08/24 17:50 All radiology interpretation(s) finalized by discharge EKG Data EKG 1: Interpretation: Normal sinus rhythm without ST segment elevation Discharge Plan Discharge Patient Disposition: Home Clinical Impression: PRIYA (acute kidney injury), UTI due to Klebsiella species Condition: Stable Prescriptions: New amoxicillin-pot clavulanate 875-125 mg tablet 1 tab PO Q12H Qty: 20 0RF No Action methadone 10 mg tablet 85 mg PO DAILY sulfamethoxazole-trimethoprim [Bactrim DS] 800-160 mg tablet 1 tab PO BID 5 Days Qty: 10 0RF venlafaxine 75 mg capsule,extended release 24hr 75 mg PO DAILY Qty: 30 0RF ondansetron HCl 4 mg tablet 4 mg PO Q6H PRN (Reason: nausea and vomiting) Qty: 20 0RF Discharge Orders: Discharge ED (Routine); Ordered 11/08/24 Ordered By: Meredith Kiser Referrals: Jojo Choi FNP [Primary Care Provider, Family Practice] Discharge Diet: Usual diet Discharge Activity: Resume usual activity Patient Instructions: Acute Kidney Injury (DC), Altered Mental Status (ED), Patient Portal & Valdo Instructions Activity Restrictions/Additional Instructions: - Stop Bactrim. This is not an allergic reaction, this can be a side effect, however do not continue this as it could affect her kidney function. - Augmentin (amoxicillin?clavulanate) was sent to your pharmacy. Take as directed for 10 days. Make sure you utilize a probiotic or active culture yogurt to avoid infectious diarrhea -You will need to follow-up with her primary care physician. Call tomorrow and see if she can get in tomorrow before this weekend. If she cannot and is doing better, just early follow-up at the beginning of the week. -You do need to increase your fluid intake. As noted, your kidneys are not working, partly from not drinking noncaffeinated beverages, and partly from your urinary tract infection, and partly from the Bactrim. Make sure you are drinking 70 ounces of noncaffeinated beverages/24 hours. - You will need to follow-up on your kidney lab. When you call tomorrow for your follow-up, make sure they know you need to follow-up your kidney labs. - Please return to the ED if you have any worsening symptoms again. Print Language: Greenlandic Coding Level of Care Code ED Bead Wire Insulator for Anderson Sorto
[2024-11-08 18:01] LABS: Hematocrit 34.3 % (36-47); Hemoglobin 11.40 g/dL (11.27-16.99); Mean Corpuscular HGB Conc 33.2 g/dL (30-55); Mean Corpuscular Hemoglobin 32.6 pg (27-33); Mean Corpuscular Volume 98.0 fl (85-98); Nucleated Red Blood Cells % 0 %; Platelet Count 397 10^3/cmm (157-399); Red Blood Count 3.50 10^6/uL (3.85-5.65); White Blood Count 7.29 10^3/uL (3.29-11.43)
[2024-11-08 18:29] LABS: Alanine Aminotransferase 7 U/L (0-33); Albumin Level 4.4 g/dL (3.5-5.2); Alcohol Level < 10 mg/dL (0-10); Alkaline Phosphatase 70 U/L (35-105); Anion Gap 16.7 (5-19); Aspartate Amino Transferase 13 U/L (0-32); Blood Urea Nitrogen 22 mg/dL (6-20); Calcium 9.1 mg/dL (8.5-10.5); Carbon Dioxide 23 mmol/L (22-29); Chloride 100 mmol/L (98-107); Creatinine Clr Calc Pharmacy 58.6736; Globulin 4.0 g/dL (1.3-4.6); Glucose 126 mg/dL (65-115); HCG, Serum Qual Negative (Negative); Osmolality Calculated 287 mOsm/kg (285-295); Potassium 3.7 mmol/L (3.5-5.1); Sodium 136 mmol/L (136-145); Total Protein 8.4 g/dL (6.6-8.7)
[2024-11-08 18:30] VITALS: BP 137/78; PULSE 98; O2SAT 96
[2024-11-08 18:30] LABS: Lactic Sepsis W/Reflex 2.1 mmol/L (0.5-2.2)
[2024-11-08 18:42] LABS: Ammonia 22 umol/L (11-51)
[2024-11-08 19:02] VITALS: BP 122/69; PULSE 87; RESP 16; O2SAT 97
[2024-11-08 19:20] LABS: Glucose Urine UA Negative (Normal); Nitrate Urine Negative (Negative); Specific Gravity, Urine 1.023 (1.005-1.030)
[2024-11-08 19:25] LABS: PCP Screen Urine Negative (Negative)
[2024-11-08 19:30] VITALS: BP 120/76; PULSE 89; RESP 13; O2SAT 96
[2024-11-08 19:43] LABS: Reflex Lactate Order REFLEX LACTIC ORDERD
[2024-11-08 20:54] VITALS: BP 129/77; PULSE 90; O2SAT 96
== END 2024-11-08 20:55 | disposition home or self-care (01) ==
PROVIDERS: Emergency Medicine; Emergency Provider Physician Assistant; PCP Nurse Practitioner Family
DX: N17.9 Acute kidney failure, unspecified (principal); N39.0 Urinary tract infection, site not specified; B96.1 Klebsiella pneumoniae [K. pneumoniae] as the cause of diseases classified elsewhere; F17.210 Nicotine dependence, cigarettes, uncomplicated
CPT/HCPCS: 36415; 80053; 80306; 80307; 81001; 82140; 83605; 84703; 85025; 86140; 87040; 93005; 96360; 96361; 99284; J7030; J7120

== ENCOUNTER → 2024-11-21 12:43 | Outpatient (BNVA) | payer MEDICAID, SELFPAY | PROVIDERS: PCP Nurse Practitioner Family; Visit Provider Nurse Practitioner Family | DX: E03.9 Hypothyroidism, unspecified (principal) | CPT/HCPCS: 84439; 84443 ==

== ENCOUNTER → 2025-01-02 14:18 | Outpatient (BNVA) | payer MEDICAID, SELFPAY | PROVIDERS: PCP Nurse Practitioner Family; Visit Provider Nurse Practitioner Family | DX: F41.9 Anxiety disorder, unspecified (principal); F32.A Depression, unspecified; R30.0 Dysuria | CPT/HCPCS: 80048; 81003; 84439; 84443; 85025; 87086 ==

== ENCOUNTER 2025-01-07 10:17 | Emergency (ER) | payer MEDICAID, SELFPAY ==
[2025-01-07 10:37] VITALS: BP 117/72; PULSE 92; RESP 20; TEMP 37; O2SAT 100; BMI 25.8
--- NOTE | 2025-01-07 10:44 | ECG_ITS ---
[facility]: [facility]07 Pat Name: Nelsy Huang Department: Room: Gender: Female [employer]: : 1985 Requested By: Lorrie Taylor Order Number: [id number] Jason MD: Chelo Albarran M.D. Measurements Intervals [place] Rate: 82 P: 38 SC: 130 QRS: 48 QRSD: 110 T: 47 QT: 393 QTc: 460 Interpretive Statements SINUS RHYTHM POSSIBLE RIGHT VENTRICULAR CONDUCTION DELAY [RSR (QR) IN V1/V2] Compared to ECG 11/08/2024 18:06:19 Incomplete right bundle-branch block no longer present Electronically Signed On 01-07-2025 17:49:25 BUCKLE ATTACHER by Chelo Albarran M.D. [email or web address]
--- NOTE | 2025-01-07 10:44 | XRR_ITS ---
PROCEDURE INFORMATION: Exam: XR Chest Exam date and time: 01/07/2025 10:46 AM Age: 39 years old Clinical indication: Shortness of breath; Prior surgery; Surgery date: 6+ months; Surgery type: Spine; Anxiety attack; Additional info: SOB TECHNIQUE: Imaging protocol: Radiologic exam of the chest. Views: 1 view. COMPARISON: CR XR chest 2V* [id number] 06/27/2020 10:10 AM FINDINGS: Lungs: Unremarkable. No consolidation. Pleural spaces: Small/moderate left pleural effusion has developed. Heart/Mediastinum: See Vasculature finding. Vasculature: Descending thoracic aortic endovascular stent. Bones/joints: Posterior fusion thoracolumbar spine. XR/XR chest 1V portable [id number] IMPRESSION: Left pleural effusion.
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
--- OUTSIDE RECORDS SUMMARY | 2025-01-07 10:56 | XMS_ITS | Encounter Summary ---
Author Organization [facility] Address 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
--- OUTSIDE RECORDS SUMMARY | 2025-01-07 10:56 | XMS_ITS | Clinical Summary ---
Author Organization [facility] Address [address] [place]: Epic Prelude ADT [place] [address] Care Team Providers Care Pug Mill Operator Helper Name Role Phone Unavailable Primary Care Provider Unavailabl e Allergies No known active allergies Medications methadone HCl (METHADONE ORAL) Take 110 mg by mouth one time only. Active lidocaine (LIDODERM) 5 % Adhesive Patch, Medicated Apply 1 Patch to affected area every 24 hours. 14 Patch 5 Active naloxone (NARCAN) 4 mg/spray [place], Non-Aerosol EMERGENCY USE ONLY: Administer 1 spray [...] times daily. 30 Tablet 1 5 Active ALPRAZolam (XANAX) 0.25 mg tablet Take 0.25 mg by mouth 2 times daily as needed for Anxiety. 5 Active ondansetron (ZOFRAN) 4 mg Tablet TAKE 1 TABLET BY MOUTH EVERY 6 HOURS FOR NAUSEA AND VOMITING Active busPIRone (BUSPAR) 5 mg tabletIndicatio ns:Anxiety Take 1 Tablet (5 mg) by mouth 3 times daily as needed for Anxiety. 90 Tablet Active Active Problems Problem Noted Date Diagnosed [...] Encounters Date Type Department Care Team Description 01/01/2025 External Device Data ST[facility] ABSTRACTION Provider, Abstract 01/01/2025 External Device Data [facility] ABSTRACTION Provider, Abstract 12/18/2024 External Device Data [facility] ABSTRACTION Provider, Abstract 12/11/2024 External Device Data [facility] ABSTRACTION Provider, Abstract 12/04/2024 Abstract [facility] [address] [place] [address] May,12/04/2024 Orders Only [facility] Health Information Management [place] [address] [place] [address] Provider, Abstract 11/29/2024 9:59 AM CDT - 11/29/2024 11:59 PM CDT Hospital Encounter [facility] [address] [place] [phone] May, Discharge Disposition: Home or Self Care 11/22/2024 Results Follow-Up [facility] [address] [place] [address] May, POC URINALYSIS DIPSTICK AUTOMATED, URINE CULTURE, MAMMO 3D JOLEEN SCREEN BILAT W OR WO CAD 11/20/2024 10:00 AM CDT Office Visit [facility] [address] [place] [phone] Sweet[place], HIP HOP ARTIST Encounter to establish care (Primary Dx); Anxiety; Encounter for screening mammogram for breast cancer; Acute cystitis without hematuria; Opioid dependence in remission ([facility]) 11/20/2024 External Device Data ST[facility] ABSTRACTION Provider, Abstract 11/06/2024 External Device Data [facility] ABSTRACTION Provider, Abstract 11/06/2024 External Device Data [facility] ABSTRACTION Provider, Abstract 11/06/2024 External Device Data [facility] ABSTRACTION Provider, Abstract 10/30/2024 External Device Data [facility] ABSTRACTION Provider, Abstract 10/16/2024 External Device Data [facility] ABSTRACTION Provider, Abstract 10/16/2024 External Device Data [facility] ABSTRACTION Provider, Abstract 10/10/2024 External Device Data [facility] ABSTRACTION Provider, Abstract from Last 3 Months Immunizations Immunization Administration [...] 1 Q uit: 10/15/2014 Smokeless Tobacco: Never Tobacco [...] on file 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 Gender Identity Not on file Sexual Orientation Not on file Last Filed Vital Signs Vital Sign Reading Time Taken Comments Blood Pressure 110/70 11/20/2024 10:29 AM CDT Pulse 65 11/20/2024 10:29 AM CDT Temperature 36.9 C (98.4 F) 11/20/2024 10:29 AM CDT Respiratory Rate 16 11/20/2024 10:29 AM CDT Oxygen Saturation 99% 11/20/2024 10:29 AM CDT Inhaled Oxygen Concentration - - Weight 73.1 kg (161 lb 3.2 oz) 11/20/2024 10:29 AM CDT Height 167.6 cm (5' 6 ) 11/20/2024 10:29 AM CDT Body Mass Index 26.02 11/20/2024 10:29 AM CDT Plan of Treatment Health Maintenance Due Date Last Done Comments DTAP/TDAP/TD VACCINES (3 - Tdap) 04/24/2003 10/15/18 88, 12/25/1985 HEPATITIS B VACCINES (1 of 3 - 19+ 3-dose series) 04/24/2003 HPV/Cotest (21-29) 2005 HPV VACCINES (1 - 3-dose SCDM series) 04/24/2011 CERVICAL CANCER SCREENING 2014 HPV/Cotest (30-65) 2014 PAP SMEAR 2014 INFLUENZA VACCINE (#1) 2024 BREAST CANCER SCREENING 11/29/2025 11/29/2024 Pre-Diabetes and Diabetes Screening 06/26/202606/26 Medical Devices Implanted Type Area Addiction Therapist Device Identifier Shelf Expiration Date Model / Serial / Lot Plate Vdr Va-Lcp 2clmn 2.4mm 02.111.621 - Sna Implanted:Qty: 1 on 08/20/2024 by Jaelyn Isabel MD at [facility] Plate Left: Arm J&J- DEPUY SYNTHES 02.111.621 / NA / [id number] Screw 1.5 Cortex Stp W/ T4 14mm ..114 - [id number] Implanted:Qty: 1 on 08/20/2024 by Jaelyn Isabel MD at [facility] Screw Left: Arm J&J- DEPUY SYNTHES .210.114 / / [id number] Screw Va Loc Strdr 2.4x18mm 02.118 - [id number] Implanted:Qty: 2 on 08/20/2024 by Jaelyn Isabel MD at [facility] Screw Left: Arm J&J- DEPUY SYNTHES .210.118 / / [id number] Screw Va Loc Strdr 2.4x20mm .120 - [id number] Implanted:Qty: 2 on 08/20/2024 by Jaelyn Isabel MD at [facility] Screw Left: Arm J&J- DEPUY SYNTHES 02.210.120 / / [id number] Screw Cortex Slftp T8 2.7x12mm 202.872 - Sna Implanted:Qty: 1 on 08/20/2024 by Jaelyn Isabel MD at [facility] Screw Left: Arm J&J- DEPUY SYNTHES 202.872 / NA / NA Explanted Type Area Addiction Therapist Device Identifier Shelf Expiration Date Model / Serial / Lot Screw Cortex Slftp T8 2.4x12mm 201.762 - [id number] Explanted:Qty: 1 on 08/20/2024 at [facility] Screw Left: Arm J&J- DEPUY SYNTHES 201.762 / / [id number] Screw Cortex Slftp T8 2.4x14mm 201.764 - [id number] Explanted:Qty: 1 on 08/20/2024 at [facility] Screw Left: Arm J&J- DEPUY SYNTHES 201.764 / / [id number] Wire K Trocar Pt 1.44y465vp 292.12 - [id number] Explanted:Qty: 3 on 08/20/2024 by Jaelny Isabel MD at [facility] Wire Left: Arm J&J- DEPUY SYNTHES 292.12 / / Wire K Trocar Pt 1.3n199yq 292.16 - [id number] Explanted:Qty: 1 on 08/20/2024 at [facility] Wire Left: Arm J&J- DEPUY SYNTHES 292.16 / / 2.4 Cortex Screw Synthes 201.774 Explanted:Qty: 1 on 08/20/2024 at [facility] Left: Arm 201.774 / / [id number] Procedures Procedure Name Priority Date/Time Associated Diagnosis Comments MAMMO 3D JOLEEN SCREEN BILAT W OR WO CAD Routine 11/29/2024 10:11 AM CDT Encounter for screening mammogram for breast cancer URINE CULTURE Routine 11/20/2024 11:14 AM CDT Acute cystitis without hematuria POC URINALYSIS DIPSTICK AUTOMATED Routine 11/20/2024 10:30 AM CDT Acute cystitis without hematuria HEMOGLOBIN A1C Routine 06/27/2023 from Last 3 Months or Most Recently Relevant to Health Maintenance Results * MAMMO 3D JOLEEN SCREEN BILAT W OR WO CAD (11/29/2024 10:11 AM CDT) Anatomical Region Laterality Modality Breast Bilateral Mammography, Dig ital Radiography Impressions 12/04/2024 8:34 PM CDT : No mammographic evidence of malignancy. BI-RADS ASSESSMENT: 1 - Negative RECOMMENDATION: Routine annual screening mammography. Narrative 12/04/2024 8:34 PM CDT EXAM: MAMMO SCRN BILAT 3D JOLEEN W OR WO CAD INDICATION: Screening COMPARISON: This is the patient's Baseline Mammogram. No comparisons are available. BREAST COMPOSITION: There are scattered areas of fibroglandular density. FINDINGS: RIGHT BREAST: There are no suspicious masses, calcifications, or areas of architectural distortion. LEFT BREAST: There are no suspicious masses, calcifications, or areas of architectural distortion. May HIP HOP ARTIST MAMMO ORDERABLES Final Result * URINE CULTURE (11/20/2024 11:14 AM CDT) URINE CULTURE SEE NOTE [email or web address] barnes Comment: CULTURE, URINE, ROUTINE Micro Number: [id number] Test Status: Final Specimen Source: Urine, clean catch Specimen Quality: Adequate Result: Less than 10,000 CFU/mL of single Gram positive organism isolated. No further testing will be performed. If clinically indicated, recollection using a method to minimize contamination, with prompt transfer to Urine Culture Transport Tube, is recommended. Test Performed at: [facility] [address] [facility] [place] [address] Canelo Crane MD Urine URINE SPECIMEN OBTAINED BY CLEAN CATCH PROCEDURE / Unknown 11/20/2024 11:14 AM CDT 11/21/2024 2:49 AM CDT May HIP HOP ARTIST MICROBIOLOGY - GENERAL ORDERABLE S Final Result [facility] [phone] [email or web address] [address] [place] [address] * (ABNORMAL) POC URINALYSIS DIPSTICK AUTOMATED (11/20/2024 10:30 AM CDT) COLOR UA POC Yellow Pale to Dark Yellow [facility] CLARITY UA POC Clear Clear, Other ME [facility] GLUCOSE UA POC Negative Negative, Normal [facility] BILIRUBIN UA POC Negative Negative [facility] KETONES UA POC Negative Negative [facility] SPECIFIC GRAVITY UA POC 1.025 1.000 - 1.030 [facility] BLOOD UA POC 1+(A) Negative [facility] PH UA POC 6.0 5.0 - 8.0 [facility] PROTEIN UA POC Negative Negative [facility] UROBILINOGEN UA POC 0.2 <2.0 mg/dL [facility] NITRITE UA POC Negative Negative [facility] LEUKOCYTE ESTERASE UA POC Negative Negative [facility] KIT LOT NUMBER POC 501,040 [facility] KIT EXP DATE POC [id number] [facility] Urine 11/20/2024 10:3 0 AM CDT May HIP HOP ARTIST POINT OF CARE TESTING Final Resu lt [facility] CLIA# [id number] [address] [place] [address] * HEMOGLOBIN A1C (06/27/2023) ABSTRACTED HGB A1C 4.7 % Blood 06/27/2023 Abstract Provider CHEMISTRY ORDERABLES Final Res ult from Last 3 Months or Most Recently Relevant to Health Maintenance Insurance Advance Directives For more information, please contact: [phone] * Full Code (Latest Code Status on File) Date Activated Date Inactivated Comments 08/20/2024 11:51 AM 08/20/2024 6:15 PM * Full Code Date Activated Date Inactivated Comments 08/20/2024 10:23 AM 08/20/2024 11:51 AM * Full Code Date Activated Date Inactivated Comments 08/09/2024 6:12 PM 08/10/2024 5:31 PM
--- OUTSIDE RECORDS SUMMARY | 2025-01-07 10:56 | XMS_ITS | Encounter Summary ---
Author Organization [facility] Address [address] [place] [address] Care Team Providers Care Wood Model Builder Name Role Phone Unavailable Primary Care Provider Unavailabl e Encounter Details Date Type Department Care Team (Late st Contact Info) Description 11/22/2024 Results Follow-Up 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
--- OUTSIDE RECORDS SUMMARY | 2025-01-07 10:56 | XMS_ITS | Encounter Summary ---
Author Organization [facility] Address 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
[2025-01-07] MEDS: LORazepam 2 mg/mL INJ 1 mL 1 MG IVP (11:01)
[2025-01-07 11:07] LABS: Hematocrit 41.7 % (36-47); Hemoglobin 12.90 g/dL (11.27-16.99); Mean Corpuscular HGB Conc 30.9 g/dL (30-55); Mean Corpuscular Hemoglobin 28.8 pg (27-33); Mean Corpuscular Volume 93.1 fl (85-98); Nucleated Red Blood Cells % 0 %; Platelet Count 281 10^3/cmm (157-399); Red Blood Count 4.48 10^6/uL (3.85-5.65); White Blood Count 7.83 10^3/uL (3.29-11.43)
[2025-01-07 11:31] LABS: Alanine Aminotransferase 15 U/L (0-33); Albumin Level 4.3 g/dL (3.5-5.2); Alkaline Phosphatase 70 U/L (35-105); Anion Gap 19.1 (5-19); Aspartate Amino Transferase 22 U/L (0-32); Blood Urea Nitrogen 13 mg/dL (6-20); Calcium 9.7 mg/dL (8.5-10.5); Carbon Dioxide 21 mmol/L (22-29); Chloride 102 mmol/L (98-107); Globulin 4.4 g/dL (1.3-4.6); Glucose 96 mg/dL (65-115); Osmolality Calculated 286 mOsm/kg (285-295); Potassium 4.1 mmol/L (3.5-5.1); Sodium 138 mmol/L (136-145); Total Protein 8.7 g/dL (6.6-8.7)
--- NOTE | 2025-01-07 11:36 | CTR_ITS ---
PROCEDURE INFORMATION: Exam: CTA Chest With Contrast Exam date and time: 01/07/2025 12:40 PM Age: 39 years old Clinical indication: Shortness of breath; Additional info: SOB TECHNIQUE: Imaging protocol: Computed tomographic angiography of the chest with contrast. Exam focused on the arteries. 3D rendering (Not supervised by radiologist): MIP and/or 3D reconstructed images were created by the technologist. Radiation optimization: All CT scans at this facility use at least one of these dose optimization techniques: automated exposure control; mA and/or kV adjustment per patient size (includes targeted exams where dose is matched to clinical indication); or iterative reconstruction. Contrast material: [id number]; Contrast volume: 100 ml; Contrast route: INTRAVENOUS (IV); COMPARISON: CR XR chest 1V portable [id number] 01/07/2025 10:46 AM RADIATION DOSE METRICS: Total DLP (mGy-cm): 305.4 FINDINGS: Pulmonary arteries: Normal. No pulmonary emboli. Aorta: Descending thoracic aorta endovascular stent. Lungs: Atelectasis or consolidation in the left lower lobe. Pleural spaces: Small/moderate left pleural effusion. Heart: Unremarkable. No cardiomegaly. No pericardial effusion. Lymph nodes: Unremarkable. No enlarged lymph nodes. Bones/joints: Posterior thoracolumbar fusion bridging a fracture T12 vertebral body. Soft tissues: Unremarkable. CT/CT angio chest PE protcl [id number] IMPRESSION: Left pleural effusion with adjacent atelectasis or infiltrate.
[2025-01-07 12:14] VITALS: BP 123/77; PULSE 85; RESP 14; O2SAT 99
[2025-01-07] MEDS: iohexol 350 mg/mL 500 mL Btl (per mL) IV (12:49)
--- NOTE | 2025-01-07 13:02 | PC.PHAR ---
Pt states she takes 110mg of Methadone daily. [facility] states pt dosage is 105mg daily given today and pt is carrying tomorrows dose for home.
[2025-01-07] MEDS: ondansetron 2 mg/ML SDV 2 mL 4 MG IVP (13:07)
[2025-01-07 13:08] VITALS: RESP 16
[2025-01-07] MEDS: morphine 4 mg/mL SDV 1 mL IVP (13:08)
[2025-01-07 13:10] VITALS: BP 115/75; PULSE 82; RESP 16; O2SAT 99
[2025-01-07 13:47] VITALS: BP 115/75; PULSE 70; O2SAT 99
== END 2025-01-07 13:50 | disposition home or self-care (01) ==
PROVIDERS: Emergency Provider Emergency Medicine; PCP Nurse Practitioner Family
DX: J90 Pleural effusion, not elsewhere classified (principal); F17.210 Nicotine dependence, cigarettes, uncomplicated
CPT/HCPCS: 71045; 71275; 80053; 85025; 93005; 96374; 96375; 99285; J2060; J2270; J2405; J7030

== ENCOUNTER 2025-01-09 11:19 | Emergency (ER) | payer MEDICAID, SELFPAY ==
[2025-01-09 11:20] VITALS: BP 119/81; PULSE 86; TEMP 36.4; O2SAT 99; BMI 25.8
--- NOTE | 2025-01-09 11:22 | XRR_ITS ---
PROCEDURE INFORMATION: Exam: XR Chest Exam date and time: 01/09/2025 11:22 AM Age: 39 years old Clinical indication: Pain; Angina pectoris; Additional info: Chest pain TECHNIQUE: Imaging protocol: Radiologic exam of the chest. Views: 1 view. COMPARISON: CT angio chest PE protcl [id number] 01/07/2025 12:40 PM FINDINGS: Lungs: Pulmonary vessels are within normal limits. Pleural spaces: Small left-sided pleural effusion, unchanged. Right lung is clear. Heart/Mediastinum: Cardiomediastinal silhouette is within normal limits. Vasculature: Descending thoracic aortic stent. Bones/joints: Postsurgical changes involving the thoracolumbar junction. XR/XR chest 1V portable [id number] IMPRESSION: No significant change.
--- OUTSIDE RECORDS SUMMARY | 2025-01-09 11:22 | XMS_ITS | Encounter Summary ---
Author Organization [facility] Address 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
--- OUTSIDE RECORDS SUMMARY | 2025-01-09 11:22 | XMS_ITS | Encounter Summary ---
Author Organization [facility] Address 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
--- OUTSIDE RECORDS SUMMARY | 2025-01-09 11:22 | XMS_ITS | Encounter Summary ---
Author Organization [facility] Address 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
--- OUTSIDE RECORDS SUMMARY | 2025-01-09 11:22 | XMS_ITS | Clinical Summary ---
Author Organization [facility] Address [address] [place]: Epic Prelude ADT [place] [address] Care Team Providers Care Engraver Tire Mold Name Role Phone Unavailable Primary Care Provider Unavailabl e Allergies No known active allergies Medications methadone HCl (METHADONE ORAL) Take 110 mg by mouth one time only. Active lidocaine (LIDODERM) 5 % Adhesive Patch, Medicated Apply 1 Patch to affected area every 24 hours. 14 Patch 5 Active naloxone (NARCAN) 4 mg/spray [place], Non-Aerosol EMERGENCY USE ONLY: Administer 1 spray [...] Data STL ABSTRACTION Provider, Abstract 12/04/2024 Abstract [facility] [address] [place] [address] May,12/04/[address] [facility] Health Information Management [place] [address] [place] [address] Provider, Abstract 11/29/2024 9:59 AM CDT - 11/29/2024 11:59 PM CDT Hospital Encounter [facility] [address] [place] [address] May, Discharge Disposition: Home or Self Care 11/22/2024 Results Follow-Up [facility] [address] [place] [address] May, POC URINALYSIS DIPSTICK AUTOMATED, URINE CULTURE, MAMMO 3D JOLEEN SCREEN BILAT W OR WO CAD 11/20/2024 10:00 AM CDT Office Visit [facility] [address] [place] [phone] Sweet[place], PRINTED FORMS PROOFREADER Encounter to establish care (Primary Dx); Anxiety; Encounter for screening mammogram for breast cancer; Acute cystitis without hematuria; Opioid dependence in remission ([facility]) 11/20/2024 External Device Data STL ABSTRACTION Provider, [...] on file 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 Plate Left: Arm J&J- DEPUY SYNTHES 02.111.621 / NA / [id number] Screw 1.5 Cortex Stp W/ T4 14mm ..114 - [id number] Implanted:Qty: 1 on 08/20/2024 by Jaelyn Isabel MD at [facility] Screw Left: Arm J&J- DEPUY SYNTHES .210.114 / / [id number] Screw Va Loc Strdr 2.4x18mm 02.118 - [id number] Implanted:Qty: 2 on 08/20/2024 by Jaelyn Isabel MD at [facility] Screw Left: Arm J&J- DEPUY SYNTHES .210.118 / / [id number] Screw Va Loc Strdr 2.4x20mm .120 - [id number] Implanted:Qty: 2 on 08/20/2024 by Jaelyn Isabel MD at [facility] Screw Left: Arm J&J- DEPUY SYNTHES 02.210.120 / / [id number] Screw Cortex Slftp T8 2.7x12mm 202.872 - Sna Implanted:Qty: 1 on 08/20/2024 by Jaelyn Isabel MD at [facility] Screw Left: Arm J&J- DEPUY SYNTHES 202.872 / NA / NA Explanted Type Area Pasting Inspector Device Identifier Shelf Expiration Date Model / Serial / Lot Screw Cortex Slftp T8 2.4x12mm 201.762 - [id number] Explanted:Qty: 1 on 08/20/[address] [facility] Screw Left: Arm J&J- DEPUY SYNTHES 201.762 / / [id number] Screw Cortex Slftp T8 2.4x14mm 201.764 - [id number] Explanted:Qty: 1 on 08/20/[address] [facility] Screw Left: Arm J&J- DEPUY SYNTHES 201.764 / / [id number] Wire K Trocar Pt 1.43i749tu 292.12 - [id number] Explanted:Qty: 3 on 08/20/2024 by Jaelyn Isabel MD at [facility] Wire Left: Arm J&J- DEPUY SYNTHES 292.12 / / Wire K Trocar Pt 1.8s336xg 292.16 - [id number] Explanted:Qty: 1 on 08/20/[address] [facility] Wire Left: Arm J&J- DEPUY SYNTHES 292.16 / / 2.4 Cortex Screw Synthes 201.774 Explanted:Qty: 1 on 08/20/[address] [facility] Left: Arm 201.774 / / [id number] Procedures Procedure Name Priority Date/Time Associated [...] calcifications, or areas of architectural distortion. May PRINTED FORMS PROOFREADER MAMMO ORDERABLES Final Result * URINE CULTURE (11/20/2024 11:14 AM CDT) URINE CULTURE SEE NOTE [employer]-Edilberto barnes Comment: CULTURE, URINE, ROUTINE Micro Number: [id number] Test Status: Final Specimen Source: Urine, clean catch Specimen Quality: Adequate Result: Less than 10,000 CFU/mL of single Gram positive organism isolated. No further testing will be performed. If clinically indicated, recollection using a method to minimize contamination, with prompt transfer to Urine Culture Transport Tube, is recommended. Test Performed at: [facility] [address] [facility] [place] [address] Canelo Crane MD Urine URINE SPECIMEN OBTAINED BY CLEAN CATCH PROCEDURE / Unknown 11/20/2024 11:14 AM CDT 11/21/2024 2:49 AM CDT May PRINTED FORMS PROOFREADER MICROBIOLOGY - GENERAL ORDERABLE S Final Result [facility] [phone] [facility] [place] [address] [place] [address] * (ABNORMAL) POC URINALYSIS DIPSTICK AUTOMATED (11/20/2024 10:30 AM CDT) COLOR UA POC Yellow Pale to Dark Yellow [facility] CLARITY UA POC Clear Clear, Other ME [facility] GLUCOSE UA POC Negative Negative, Normal [facility] BILIRUBIN UA POC Negative Negative [facility] KETONES UA POC Negative Negative [facility] SPECIFIC GRAVITY UA POC 1.025 1.000 - 1.030 [facility] BLOOD UA POC 1+(A) Negative [facility] PH UA POC 6.0 5.0 - 8.0 [facility] PROTEIN UA POC Negative Negative [facility] UROBILINOGEN UA POC 0.2 <2.0 mg/dL [facility] NITRITE UA POC Negative Negative [facility] LEUKOCYTE ESTERASE UA POC Negative Negative [facility] KIT LOT NUMBER POC 501,040 [facility] KIT EXP DATE POC [id number] [facility] Urine 11/20/2024 10:3 0 AM CDT May PRINTED FORMS PROOFREADER POINT OF CARE TESTING Final Resu lt [facility] CLIA# [id number] [address] [place] [address] * HEMOGLOBIN A1C (06/27/2023) ABSTRACTED HGB A1C 4.7 % Blood 06/27/2023 Abstract Provider CHEMISTRY ORDERABLES Final Res ult from Last 3 Months or Most Recently Relevant to Health Maintenance Insurance Advance Directives For more information, please contact: [phone] * Full Code (Latest Code Status on File) Date Activated Date Inactivated Comments 08/20/2024 11:51 AM 08/20/2024 6:15 PM * Full Code Date Activated Date Inactivated Comments 08/20/2024 10:23 AM 08/20/2024 11:51 AM * Full Code Date Activated Date Inactivated Comments 08/09/2024 6:12 PM 08/10/2024 5:31 PM
--- NOTE | 2025-01-09 11:26 | ECG_ITS ---
[id number] mobility Test Date: 2025-01-09 Pat Name: Nelsy Huang Department: Room: Gender: Female Instructional Specialist: : 1985 Requested By: Meg Casanova Order Number: [id number] Jason MD: Tania Calle M.D. Measurements Intervals [place] Rate: 85 P: 56 UT: 126 QRS: 48 QRSD: 106 T: 47 QT: 378 QTc: 451 Interpretive Statements SINUS RHYTHM POSSIBLE RIGHT VENTRICULAR CONDUCTION DELAY [RSR (QR) IN V1/V2] Compared to ECG 01/07/2025 11:00:07 No significant changes Electronically Signed On 01-10-2025 17:39:22 [employer]ER D[employer] LOCOMOTIVE by Tania Calle M.D. [email or web address] [id number]
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
--- NOTE | 2025-01-09 11:45 | CTR_ITS ---
PROCEDURE INFORMATION: Exam: CT Chest With Contrast; Diagnostic Exam date and time: 01/09/2025 2:55 PM Age: 39 years old Clinical indication: Pain; Other: Chest and back; Prior surgery; Surgery date: 6+ months; Surgery type: Spine; Additional info: Chest pain, back pain, vomiting TECHNIQUE: Imaging protocol: Diagnostic computed tomography of the chest with contrast. Radiation optimization: All CT scans at this facility use at least one of these dose optimization techniques: automated exposure control; mA and/or kV adjustment per patient size (includes targeted exams where dose is matched to clinical indication); or iterative reconstruction. Contrast material: [id number]; Contrast volume: 100 ml; Contrast route: INTRAVENOUS (IV); COMPARISON: CT angio chest PE protcl [id number] 01/07/2025 12:40 PM RADIATION DOSE METRICS: Total DLP (mGy-cm): 1547.14 FINDINGS: Lungs: Left lower lobe atelectasis. Pleural spaces: Small loculated left pleural effusion. Heart: Within normal limits. Lymph nodes: Within normal limits. Vasculature: Nonaneurysmal thoracic aorta. Endovascular stent graft is again seen within the descending thoracic aorta. Bones/joints: T8 vertebral body hemangioma. T10-L2 posterior spinal fusion hardware is again seen. Old T12 compression fracture with retropulsion is redemonstrated. Nonspecific osseous lucency and sclerosis within the sternal body and manubrium. Possible old sternal manubrial fracture. Nonspecific sclerosis in the left anterior 1st rib. Soft tissues: Unremarkable. PROCEDURE INFORMATION: Exam: CT Abdomen And Pelvis With Contrast Exam date and time: 01/09/2025 2:55 PM Age: 39 years old Clinical indication: Pain; Other: Chest and back; Prior surgery; Surgery date: 6+ months; Surgery type: Spine; Additional info: Chest pain, back pain, vomiting TECHNIQUE: Imaging protocol: Computed tomography of the abdomen and pelvis with contrast. Radiation optimization: All CT scans at this facility use at least one of these dose optimization techniques: automated exposure control; mA and/or kV adjustment per patient size (includes targeted exams where dose is matched to clinical indication); or iterative reconstruction. Contrast material: [id number]; Contrast volume: 100 ml; Contrast route: INTRAVENOUS (IV); COMPARISON: CT angio chest PE protcl [id number] 01/07/2025 12:40 PM RADIATION DOSE METRICS: Total DLP (mGy-cm): 1547.14 FINDINGS: Liver: Within normal limits. Gallbladder and biliary ducts: Distended gallbladder. Pancreas: Within normal limits. Spleen: Within normal limits. Adrenal glands: Within normal limits. Kidneys and ureters: Within normal limits. Stomach and bowel: No bowel obstruction. Large colonic stool burden. Appendix: Within normal limits. Intraperitoneal space: No significant ascites. Vasculature: Within normal limits. Lymph nodes: Within normal limits. Urinary bladder: Unremarkable as visualized. Reproductive: Gas and mottled contents within the vagina. Bones/joints: Thoracolumbar posterior spinal fusion hardware. Soft tissues: Postsurgical changes along the right groin CT/CT chest abdpel w/*[id number] IMPRESSION: Small loculated left pleural effusion with atelectasis and/or scarring. Consider thoracentesis as needed. IMPRESSION: No evidence of bowel obstruction or appendicitis.
--- NOTE | 2025-01-09 11:59 | CTR_ITS ---
PROCEDURE INFORMATION: Exam: CT Thoracic Spine Without Contrast Exam date and time: 01/09/2025 2:55 PM Age: 39 years old Clinical indication: Pain in thoracic spine; Prior surgery; Surgery date: 6+ months TECHNIQUE: Imaging protocol: Computed tomography of the thoracic spine without contrast. Radiation optimization: All CT scans at this facility use at least one of these dose optimization techniques: automated exposure control; mA and/or kV adjustment per patient size (includes targeted exams where dose is matched to clinical indication); or iterative reconstruction. COMPARISON: CT angio chest PE protcl [id number] 01/07/2025 12:40 PM RADIATION DOSE METRICS: Total DLP (mGy-cm): 1547.14 FINDINGS: Bones/joints: Status post T10 to L2 posterior spinal fusion with intact hardware. Redemonstrated T12 comminuted vertebral body fracture with osseous retropulsion and moderate height loss. Possible T8 vertebral body hemangioma. Healing posteromedial left 10th rib fracture with callus formation. Evaluation of the spinal canal along the hardware levels is limited Soft tissues: Postsurgical changes in the paraspinal soft tissues. Other findings: Intrathoracic findings reported separately. CT/CT thoracic spin wo con* [id number] IMPRESSION: T10-L2 posterior spinal fusion with intact hardware.
[2025-01-09 12:17] LABS: Hematocrit 38.0 % (36-47); Hemoglobin 12.30 g/dL (11.27-16.99); Mean Corpuscular HGB Conc 32.4 g/dL (30-55); Mean Corpuscular Hemoglobin 29.3 pg (27-33); Mean Corpuscular Volume 90.5 fl (85-98); Nucleated Red Blood Cells % 0 %; Platelet Count 276 10^3/cmm (157-399); Red Blood Count 4.20 10^6/uL (3.85-5.65); White Blood Count 8.11 10^3/uL (3.29-11.43)
[2025-01-09 12:36] LABS: INR 0.99 (0.8-1.2); Prothrombin Time 13.80 SECONDS (12.1-14.9)
[2025-01-09 12:37] LABS: Partial Thromboplastin Time 27.0 SECONDS (23.9-36.7)
[2025-01-09 12:40] LABS: Glucose Urine UA Negative (Normal); Nitrate Urine Negative (Negative); Specific Gravity, Urine 1.030 (1.005-1.030)
[2025-01-09 12:41] LABS: Lactic Sepsis W/Reflex 1.7 mmol/L (0.5-2.2)
[2025-01-09 12:48] LABS: Troponin(5th) Baseline 10 ng/L (0-10)
[2025-01-09 12:51] LABS: Alanine Aminotransferase 14 U/L (0-33); Albumin Level 4.4 g/dL (3.5-5.2); Alkaline Phosphatase 65 U/L (35-105); Anion Gap 20.1 (5-19); Aspartate Amino Transferase 15 U/L (0-32); Blood Urea Nitrogen 22 mg/dL (6-20); Calcium 9.2 mg/dL (8.5-10.5); Carbon Dioxide 20 mmol/L (22-29); Chloride 99 mmol/L (98-107); Globulin 3.4 g/dL (1.3-4.6); Glucose 141 mg/dL (65-115); Lipase 44 U/L (13-60); NT Pro B Type Natriuretic Pept 62 pg/mL (0-125); Osmolality Calculated 286 mOsm/kg (285-295); Potassium 4.1 mmol/L (3.5-5.1); Sodium 135 mmol/L (136-145); Total Protein 7.8 g/dL (6.6-8.7)
--- NOTE | 2025-01-09 14:15 | ECG_ITS ---
[facility] Date: 2025-01-09 Pat Name: Nelsy Huang Department: Room: Gender: Female Group Account Director: : 1985 Requested By: Meg Casanova Order Number: [id number] Jason MD: Tania Calle M.D. Measurements Intervals [place] Rate: 79 P: 61 [place]: 140 QRS: 50 QRSD: 105 T: 46 QT: 372 QTc: 427 Interpretive Statements SINUS RHYTHM INCOMPLETE RIGHT BUNDLE BRANCH BLOCK [90+ ms QRS DURATION, TERMINAL R IN V1/V2, 40+ ms S IN I/aVL/V4/V5/V6] Compared to ECG 01/09/2025 11:26:42 Incomplete right bundle-branch block now present Electronically Signed On 01-10-2025 18:01:36 CORE LAYER MACHINE OPERATOR by Tania Calle M.D. [email or web address] [id number]
[2025-01-09 14:24] LABS: Troponin 5 2HR 10.06 ng/L (0-10); Troponin 5 2HR Delta 0.06 ABS# (0-10)
[2025-01-09] MEDS: iohexol 350 mg/mL 500 mL Btl (per mL) IV (14:59)
[2025-01-09 15:45] VITALS: PULSE 73; O2SAT 96
== END 2025-01-09 15:50 | disposition home or self-care (01) ==
PROVIDERS: Emergency Provider Emergency Medicine; PCP Nurse Practitioner Family
DX: M54.9 Dorsalgia, unspecified (principal); J90 Pleural effusion, not elsewhere classified; F17.210 Nicotine dependence, cigarettes, uncomplicated
CPT/HCPCS: 36415; 71045; 71260; 72128; 74177; 80053; 81001; 83605; 83690; 83880; 84484; 85025; 85610; 85730; 86140; 87040; 93005; 99285; J9999

== ENCOUNTER 2025-01-28 16:48 | Outpatient (CLI) | payer MEDICAID, SELFPAY ==
--- NOTE | 2025-01-28 16:30 | US_ITS ---
WS: [id number] RENAL ULTRASOUND HISTORY: N28.9 - Disorder of kidney and ureter, unspecified COMPARISON: 08/07/2005, CT 01/09/2025 TECHNIQUE: 2-D and color Doppler imaging of the kidney submitted. Right kidney: 8.7 cm x 3.4 cm x 4.1 cm. Cortex: 1.0 cm No mass or hydronephrosis. Left kidney: 8.0 cm x 4.0 cm x 4.4 cm. Cortex: 1.3 cm Normal echogenicity with no hydronephrosis or mass. Aorta: Normal. Urinary Bladder: Normal distention. US/US renal BI* [id number] IMPRESSION: 1. No renal obstruction or mass. 2. Kidneys are measuring low normal size. Size of the kidneys reviewed from e CT of 01/09/2025. On that recent CT the measurements were normal. Ultrasound measurements may have been limited to adjacent bowel gas.
== END 2025-01-28 16:49 | disposition home or self-care (01) ==
LOC: RAD 16:50
PROVIDERS: PCP Nurse Practitioner Family; Visit Provider Nurse Practitioner Family
DX: N28.9 Disorder of kidney and ureter, unspecified (principal)
CPT/HCPCS: 76770